=== PATIENT | male | born 1945 | race Hispanic/Latino ===

== ENCOUNTER 2017-10-21 19:15 | Inpatient (IN) | payer MEDICARE ==
[~2017-10-21 19:15] MED LIST: ISOVUE-370 76%-LOCM 1 ML ONE
[2017-10-21 20:17] LABS: #Eosinphils 0.1 thou/uL (0.0-0.7); #Lymphocytes 1.1 thou/uL (1.20-3.40); #Monocytes 0.4 thou/uL (0.11-0.59); #Neutrophils 6.8 thou/uL (1.40-6.50); %Basophils 0.1 % (0.0-1.0); %Eosinophils 0.8 % (0.0-10.0); %Lymphocytes 13.2 % (21.0-51.0); %Monocytes 4.8 % (0.0-10.0); Hematocrit 53.4 % (42.0-52.0); Mean Platelet Volume 6.7 fL (7.4-10.4); Red Blood Cell (RBC) Count 5.42 mill/uL (4.70-6.10); White Blood Cell (WBC) Count 8.4 thou/uL (4.8-10.8)
[2017-10-21 20:37] LABS: Lactic Acid - Sepsis 2.8 mmol/L (0.5-2.2)
[2017-10-21 20:38] LABS: ALT (SGPT) 24 U/L (8-55); AST (SGOT) 22 U/L (5-34); Alkaline Phosphatase 71 U/L (40-150); Anion Gap 14 mmol/L (10-20); BUN (Urea Nitrogen) 17 mg/dL (8.4-25.7); Bilirubin, Total 1.7 mg/dL (0.2-1.2); Calc. Creatinine Clearance 0 mL/min (70-130); Carbon Dioxide 28 mmol/L (23-31); Chloride 92 mmol/L (98-107); Estimated GFR-MDRD Greater than 90; Globulin 3.6 g/dL (2.4-3.5); Protein, Total 7.1 g/dL (5.8-8.1)
[2017-10-21 20:51] LABS: CK (CPK) 91 U/L (30-200); Lipase Less than 4 U/L (8-78)
[2017-10-21 20:54] LABS: Troponin I 0.028 ng/mL (< 0.028)
[2017-10-21 20:56] LABS: Prothrombin Time 14.2 SEC (12.0-14.7)
--- NOTE | 2017-10-21 21:36 | RAD ---
LEFT LOWER LEG TWO VIEWS 10/21/17 HISTORY: Fall. Left leg injury. FINDINGS: The tibia and fibula are intact. There are degenerative changes of the knee and ankle. Calcifications apparent within the arterial structures. IMPRESSION: No acute osseous abnormalities are demonstrated. POS: [facility]
[2017-10-21 21:38] LABS: Bilirubin Small (Negative); Blood, Urine Negative (Negative); Glucose, Urine (Dipstick) 250 mg/dL (Negative); Ketone, Urine 15 mg/dL (Negative); Nitrite Positive (Negative); Protein, Urine (Dipstick) Trace mg/dL (Neg-Trace)
--- NOTE | 2017-10-21 21:38 | RAD ---
LEFT KNEE FOUR VIEWS: 10/21/17 HISTORY: Fall. Left knee injury. FINDINGS: There is complete loss of joint space at the medial compartment with tricompartmental osteophytosis. Osseous structures are demineralized. Fluid distends the suprapatellar bursa on the lateral view. No acute fracture or dislocation or dislocation are apparent. IMPRESSION: 1. Severe osteoarthritic changes left knee with joint effusion. 2. Atherosclerosis. POS: [facility]
[2017-10-21 21:39] LABS: Bacteria/HPF None Seen HPF (None Seen); Squamous Epithelial 0-3 HPF (0-3)
[2017-10-21 21:40] LABS: Hyaline Casts/LPF 0-3 HYALINE CAST LPF (0-3 Hyaline); RBC/HPF 0-3 HPF (0-3)
--- NOTE | 2017-10-21 21:40 | RAD ---
LEFT FEMUR TWO VIEWS 10/21/17 HISTORY: Fall. Left leg injury. FINDINGS: Degenerative changes of the knee and hip are apparent. Sclerotic lesion overlying the proximal femora l shaft has the appearance of a bone island. No acute fracture, dislocation, or aggressive osseous er osions are apparent. IMPRESSION: No acute osseous abnormalities are demonstrated. POS: [facility]
[2017-10-21 23:25] LABS: Lactate 1.85 mmol/L (0.50-2.20)
--- NOTE | 2017-10-21 23:41 | CT ---
CT HEAD NONCONTRAST 10/21/17 HISTORY: Weakness. Abdominal pain. COMPARISON: 01/20/16. FINDINGS: There is no evidence of acute intracranial hemorrhage or infarct. The ventricles appear normal in siz e, shape and position. Diffuse cortical atrophy and chronic ischemic small vessel disease are again d emonstrated. Visualized paranasal sinuses remain well aerated. IMPRESSION: Chronic type findings are stable. No acute intracranial abnormalities are demonstrated on noncontrast CT head. POS: [facility]
--- NOTE | 2017-10-21 23:45 | CT ---
CT ABDOMEN AND PELVIS WITH IV CONTRAST 10/21/17 HISTORY: Abdominal pain. FINDINGS: There is minimal right pleural fluid and small amount of left pleural fluid with associated atelectas is at each lung base. The liver, spleen, kidneys, right adrenal gland, and pancreas are within normal limits. An indeterminate 1.3 cm nodule arises from the left adrenal gland and is of Hounsfield units indeterminate on the contrast enhanced exam. The urinary bladder is unremarkable. Prominent degenera tive changes involving the lumbar spine. Lack of oral contrast limits evaluation of the bowel. There is no evidence of obstruction. IMPRESSION: 1. Left pleural effusion with associated left basilar atelectasis. 2. No evidence of bowel obstruction. 3. Left adrenal nodule, indeterminate, 1.3 cm. POS: [facility]
[2017-10-22] MEDS ORDERED: cefTRIAXone\\ROCEPHIN 2 GM in Sodium Chloride 0.9% 100 ML IVPB SCH (00:15)
[2017-10-22 00:44] LABS: Troponin I 0.037 ng/mL (< 0.028)
[2017-10-22] MEDS ORDERED: Azithromycin 500 MG in Sodium Chloride 0.9% 250 ML 250 ML IVPB SCH (00:45)
[2017-10-22] MEDS ORDERED: Acetaminophen 325 MG TAB PO PRN (01:51)
[2017-10-22] MEDS ORDERED: Ondansetron ODT 4 MG TAB PO PRN (01:51)
[2017-10-22] MEDS ORDERED: HYDROcodone/Acetaminophen 10/325 mg Tablet PO PRN (01:51)
[2017-10-22 03:27] LABS: #Eosinphils 0.1 thou/uL (0.0-0.7); #Lymphocytes 1.3 thou/uL (1.20-3.40); #Monocytes 0.7 thou/uL (0.11-0.59); #Neutrophils 6.4 thou/uL (1.40-6.50); %Basophils 0.4 % (0.0-1.0); %Eosinophils 1.5 % (0.0-10.0); %Lymphocytes 15.1 % (21.0-51.0); %Monocytes 7.9 % (0.0-10.0); Hematocrit 49.4 % (42.0-52.0); Mean Platelet Volume 6.1 fL (7.4-10.4); Red Blood Cell (RBC) Count 5.05 mill/uL (4.70-6.10); White Blood Cell (WBC) Count 8.6 thou/uL (4.8-10.8)
[2017-10-22 03:50] LABS: Anion Gap 8 mmol/L (10-20); BUN (Urea Nitrogen) 15 mg/dL (8.4-25.7); Calc. Creatinine Clearance 0 mL/min (70-130); Calcium 8.7 mg/dL (7.8-10.44); Carbon Dioxide 34 mmol/L (23-31); Chloride 93 mmol/L (98-107); Estimated GFR-MDRD Greater than 90
[2017-10-22 03:53] LABS: Troponin I 0.038 ng/mL (< 0.028)
[2017-10-22] MEDS: HYDROcodone/Acetaminophen 5/325 mg Tablet PO PRN ×3 (04:02→17:06)
[2017-10-22] MEDS: Sodium Chloride 0.9% 1,000 ML IV SCH ×3 (04:03→22:59)
[2017-10-22 04:06] LABS: Critical Call CKMBM RESULT DECREASING
--- NOTE | 2017-10-22 04:32 | HP ---
PRIMARY CARE PHYSICIAN: None. CHIEF COMPLAINT: Knee pain and abdominal pain. HISTORY OF PRESENT ILLNESS: Mr. Shea is a pleasant 71-year-old male who was brou ght in by his son today for evaluation of ongoing knee pain and weakness. The son gave a very extensive history starting about a year and a half ago. The patient was in [facility], able to drive himself around. At that time he was walking down the steps of his home and apparently got his foot caught up in the B allester on one of the sides and fell. His ankle remained tangled and the patient laid there on the ground for some time. Neighbors called the son who came to get the dad. He was able to get his foot worked out and took him to the emergency department for evaluation where he was found to have no irvin dence of fracture. Since that time, the patient was very hesitant about going downstairs or doing mu ch activity due to fear of falling, but he was able to ambulate around his house and do his normal a ctivities. The patient has had persistent knee pain on the left hand side since that time, and actually several months ago, went to go see an orthopedic doctor and was recommended that he have a knee replacement. During the workup, the patient was required to have a stress test and was unwilling to go into what sounds like a nuclear scanner at the installation service representative associated with [facility]. At that time, he did not have any further workup and had no surgery. The patient had progressive incre asing pain to his knee and 3 days ago somehow managed to slide off the edge of his bed and landed on his knee and hurt it even more. Since that time, he has been mostly bedridden and has had increasing pain. He cannot bear weight on it due to pain though his muscles seem to be strong enough. Today, he was having abdominal pain while sitting on the edge of his wheelchair sitting forward so the son b rought him to the emergency department for evaluation. The patient complains of cough and subjective fevers, though it has never been taken. No drenching sweats. The patient has had urinary incontine nce, he has been unable to get out of bed in the last 24 hours. He has had no nausea and vomiting, n o diarrhea, no GI bleeding. In the emergency department, labs were fairly normal. We were called for observation because of the history of subjective fevers, initially elevated lactate that improved with hydration, and placement options. PAST MEDICAL HISTORY: None. PAST SURGICAL HISTORY: None. HOME MEDICATIONS: None. ALLERGIES: NKDA. FAMILY HISTORY: Negative for clotting or bleeding disorder, no immune dysfunction. SOCIAL HISTORY: Negative for habits x3. The patient does live alone. REVIEW OF SYSTEMS: A 10-point review of systems was performed and negative for all other systems exc ept for that in the HPI. PHYSICAL EXAMINATION: VITAL SIGNS: Temperature 98.5, pulse 61, blood pressure 112/59, respiratory rate 24, but actually 18 -20 by my count, he was satting 94% on room air. GENERAL: He is awake. He is alert. He is oriented x3. He is an obese, chronically ill appearing L atin Martiniquais male who is sitting up in bed. HEENT: Normocephalic and atraumatic. Pupils equal, reactive bilaterally, I feel like he has some pa lpebral edema, but the son says is normal for him. His mouth has no visible lesions or thrush. NECK: Supple, without lymphadenopathy, JVD, or thyromegaly. He has normal carotid upstroke. CHEST: Lungs are clear anteriorly with poor air movement. He has poor air movement posteriorly. I hear some faint crackles in the bases. He has some kyphoscoliosis and does not have very good moveme nt, but does have symmetrical chest excursion. CARDIOVASCULAR: He has a normal S1 and S2. I do not appreciate murmurs. No S3 or S4. No audible r ubs. ABDOMEN: Obese, it is nontender, nondistended. He has no masses, no organomegaly. There is no rebo und, rigidity or guarding. There are normal active bowel sounds present in all 4 quadrants. EXTREMITIES: No cyanosis, no clubbing. There is 1+ edema in the bilateral feet. He does have some superficial varicosities. He has some chronic petechial-like appearance to the subcu tissue present around the ankles and the base of the toes bilaterally. He does have 2+ peripheral pulses in the amish salis pedis and posterior tibial. SKIN: The skin is otherwise, warm, moist and well perfused without any rashes or lesions. NEUROLOGIC: Shows cranial nerves II-XII grossly intact. He has no focal neurologic deficits. His f eet have 5/5 strength in plantar and dorsiflexion, he has 4/5 strength in bilateral legs and lifting his thighs off the bed, I was unable to test cerebellar signs. LABORATORY DATA: CMP shows sodium 129, potassium 5.1, chloride 92, bicarbonate 28, BUN 17, creatinin e 0.59, and glucose of 143. Liver functions are normal, total bilirubin slightly elevated at 1.7. L actic acid initially was 2.8, and after hydration went to 1.9. BNP was mildly elevated at 271.4, CK was normal at 91, but MB was elevated at 9.9. Troponin I was negative at 0.028. A urinalysis showed a 7-10 white blood cells, 0-3 epithelial cells, no bacteria, trace leukocyte zi rase and positive nitrite. CBC showed a white count of 8.4, hemoglobin 17.9, hematocrit of 53.4, and platelet count 157,000, 81% granulocytes. ASSESSMENT AND PLAN: 1. Moderate dehydration: The patient has hemoconcentrated his hemoglobin Creatinine and BUN appear normal, though the BUN is more than 20:1 ratio. The patient has an elevated lactic acid, got fluids in the emergency department and the lactic acid normalized. Urine certainly did look like it might be a little on the dirty side. The patient will be placed in observation, given IV fluids and evalua chip in the morning. 2. Subjective fevers, cough, elevated lactic acid: I do not think the patient has sepsis. I think he may have a community-acquired urinary tract infection present on admission, not associated with an y catheters. Given his changes on CT scan seen on the CT of the abdomen, I certainly think that he c ould have an early community-acquired pneumonia. We will start him on Rocephin and azithromycin whic h will cover both the urine and the lung, will repeat chest x-ray after hydration and reevaluate. Wi ll give oxygen as needed, but currently he has no need. 3. Severe obesity. 4. Acute on chronic left knee pain: The patient reinjured his knee a few days ago. Certainly could have had a ligamental injury at this point. X-rays in the emergency department were negative for fr acture. We would focus on his medical issues first before asking for orthopedic opinion as he has al ready seen orthopedic as an outpatient. 5. The patient was supposed to have a stress test, but was not willing to attempt the machine. May need to get stress testing at some point in the near future as an inpatient or an outpatient. We chelsey l wait for the other medical issues to clear up.
[2017-10-22] MEDS: Famotidine 20 MG TAB PO SCH ×2 (08:23→20:40)
[2017-10-22] MEDS: Enoxaparin Sodium 40 MG/0.4 ML SYRINGE SC SCH (08:23)
--- NOTE | 2017-10-22 08:35 | RAD ---
' PORTABLE CHEST: Date: 10/22/17 HISTORY: Fever and cough. FINDINGS: Comparison made to CT abdomen dated 10/21/17 which contained images through the lung bases. Opacification of left lung base is seen consistent with left effusion and dense left basilar atelecta sis or consolidation. This was confirmed on the recent CT of 10/21/17. The right lung appears clear on this portable projection. IMPRESSION: Continued left basilar opacification. POS: [facility]
[2017-10-22] MEDS ORDERED: FLU VACC TS2017-18 (>65YR) 0.5 ML SYRINGE IM ONE (09:00)
--- NOTE | 2017-10-22 09:46 | PDOC.PN ---
- Subjective Encounter Start Date: 10/22/17 Encounter Start Time: 09:43 Subjective: cough, pain L knee - Objective Resuscitation Status: Resuscitation Status FULL:Full Resuscitation MAR Reviewed: Yes Vital Signs & Weight: Vital Signs (12 hours) Temp Pulse Resp BP Pulse Ox 10/22/17 08:34 97.6 F 84 20 10/22/17 07:50 97.6 F 84 20 112/68 95 10/22/17 04:38 98.7 F 71 22 H 10/22/17 03:35 98.7 F 71 22 H 116/58 L 93 L Weight Weight 283 lb 8 oz I&O: 10/21/17 10/22/17 10/23/17 06:59 06:59 06:59 Intake Total 258 Balance 258 Result Diagrams: 10/22/17 03:19 10/22/17 03:19 Phys Exam - Physical Examination Constitutional: NAD Neck: no JVD dull with rales LL lung Cardiovascular: RRR 3/6 sys murmur Gastrointestinal: soft, non-tender, positive bowel sounds Musculoskeletal: no edema effusion L knee Dx/Plan (1) PNA (pneumonia) Code(s): J18.9 - PNEUMONIA, UNSPECIFIED ORGANISM Status: Acute Qualifiers: Pneumonia type: due to unspecified organism Laterality: left Lung location: lower lobe of lung Qualified Code(s): J18.1 - Lobar pneumonia, unspecified organism (2) Effusion of bursa of left knee Code(s): M25.462 - EFFUSION, LEFT KNEE Status: Acute (3) Heart murmur Code(s): R01.1 - CARDIAC MURMUR, UNSPECIFIED Status: Acute (4) Hyponatremia Code(s): E87.1 - HYPO-OSMOLALITY AND HYPONATREMIA Status: Acute (5) Acute respiratory failure with hypoxemia Code(s): J96.01 - ACUTE RESPIRATORY FAILURE WITH HYPOXIA Status: Acute - Plan cont iv antibx, await C&S results -: evaluate murmur with ECHO -: cont iv fluids -: uric acid level -: cont O2 * .
[2017-10-22 11:13] LABS: Troponin I 0.029 ng/mL (< 0.028)
[2017-10-22] MEDS ORDERED: Aspirin 325 mg Enteric Coated Tablet PO SCH (17:45)
[2017-10-23] MEDS: Sodium Chloride 0.9% 1,000 ML IV SCH ×2 (00:16→09:08)
[2017-10-23] MEDS: Azithromycin 500 MG in Sodium Chloride 0.9% 250 ML 250 ML IVPB SCH (00:17)
[2017-10-23] MEDS: cefTRIAXone\\ROCEPHIN 2 GM in Sodium Chloride 0.9% 100 ML IVPB SCH (00:17)
[2017-10-23] MEDS: Enoxaparin Sodium 40 MG/0.4 ML SYRINGE SC SCH (09:10)
[2017-10-23] MEDS: Famotidine 20 MG TAB PO SCH ×2 (09:10→20:36)
[2017-10-23] MEDS: Aspirin 325 MG TAB PO SCH (09:10)
--- NOTE | 2017-10-23 09:44 | PDOC.PN ---
- Subjective Encounter Start Date: 10/23/17 Encounter Start Time: 09:41 Subjective: lethargic, poorly arousable - Objective MAR Reviewed: Yes Vital Signs & Weight: Vital Signs (12 hours) Temp Pulse Resp BP Pulse Ox 10/23/17 07:55 97.7 F 82 18 95 10/23/17 04:12 97.8 F 90 26 H 109/60 94 L 10/23/17 00:25 98.6 F 85 20 111/63 93 L Weight Weight 296 lb 3.2 oz I&O: 10/22/17 10/23/17 10/24/17 06:59 06:59 06:59 Intake Total 3180 Balance 3180 Result Diagrams: 10/22/17 03:19 10/22/17 03:19 Radiology Reviewed by me: Yes (cxr- white out on Left lung) EKG Reviewed by me: Yes (RSR, IVC defect, LAD) Phys Exam - Physical Examination Neck: no JVD dull Left alison, no BS. poor BS on R Cardiovascular: RRR, no significant murmur Gastrointestinal: soft, non-tender, positive bowel sounds Musculoskeletal: edema present Dx/Plan (1) PNA (pneumonia) Code(s): J18.9 - PNEUMONIA, UNSPECIFIED ORGANISM Status: Acute Qualifiers: Pneumonia type: due to unspecified organism Laterality: left Lung location: lower lobe of lung Qualified Code(s): J18.1 - Lobar pneumonia, unspecified organism (2) Effusion of bursa of left knee Code(s): M25.462 - EFFUSION, LEFT KNEE Status: Acute (3) Heart murmur Code(s): R01.1 - CARDIAC MURMUR, UNSPECIFIED Status: Acute (4) Hyponatremia Code(s): E87.1 - HYPO-OSMOLALITY AND HYPONATREMIA Status: Acute (5) Acute respiratory failure with hypoxemia Code(s): J96.01 - ACUTE RESPIRATORY FAILURE WITH HYPOXIA Status: Acute (6) NSTEMI (non-ST elevated myocardial infarction) Code(s): I21.4 - NON-ST ELEVATION (NSTEMI) MYOCARDIAL INFARCTION Status: Acute (7) Acute respiratory failure with hypoxia and hypercapnia Code(s): J96.01 - ACUTE RESPIRATORY FAILURE WITH HYPOXIA; J96.02 - ACUTE RESPIRATORY FAILURE WITH HYPERCAPNIA Status: Acute (8) Pleural effusion on left Code(s): J90 - PLEURAL EFFUSION, NOT ELSEWHERE CLASSIFIED Status: Acute - Plan plan discussed w/ family, medrano catheter, continue antibiotics, DVT proph w/ lovenox stat ABG, pH 7.1, CO2 110 -: rpt troponin, cont ASA -: moved to ICU, started BIPAP, nebs -: pulmonology called. -: 45 min critical care time * .
[2017-10-23 10:36] LABS: Troponin I 0.025 ng/mL (< 0.028)
[2017-10-23 11:11] LABS: Oxyhemoglobin 85.9 % (94.0-97.0); Sodium 136 mmol/L (135-148)
[2017-10-23 11:15] LABS: Modified Allen's Test POSITIVE; Vent NO
[2017-10-23 11:16] LABS: Mode 2L NC
[2017-10-23 12:30] LABS: #Eosinphils 0.1 thou/uL (0.0-0.7); #Lymphocytes 1.2 thou/uL (1.20-3.40); #Monocytes 0.6 thou/uL (0.11-0.59); #Neutrophils 7.1 thou/uL (1.40-6.50); %Basophils 0.5 % (0.0-1.0); %Eosinophils 1.3 % (0.0-10.0); %Lymphocytes 12.8 % (21.0-51.0); %Monocytes 6.9 % (0.0-10.0); Mean Platelet Volume 6.6 fL (7.4-10.4); Red Blood Cell (RBC) Count 5.01 mill/uL (4.70-6.10)
[2017-10-23 12:34] LABS: ALT (SGPT) 23 U/L (8-55); AST (SGOT) 32 U/L (5-34); Alkaline Phosphatase 70 U/L (40-150); Anion Gap 18 mmol/L (10-20); BUN (Urea Nitrogen) 17 mg/dL (8.4-25.7); Bilirubin, Total 0.7 mg/dL (0.2-1.2); Calc. Creatinine Clearance 208 mL/min (70-130); Calcium 8.6 mg/dL (7.8-10.44); Carbon Dioxide 20 mmol/L (23-31); Chloride 101 mmol/L (98-107); Estimated GFR-MDRD Greater than 90; Globulin 3.9 g/dL (2.4-3.5); Protein, Total 7.4 g/dL (5.8-8.1)
--- NOTE | 2017-10-23 13:50 | RAD ---
RADIOGRAPH CHEST 1 VIEW: Date: 10-23-17 Time: 11:43 A.M. HISTORY: 71-year-old male with respiratory failure. COMPARISON: 10-12-17 1:21 a.m. FINDINGS: There is a new finding of total opacification of the left hemithorax. The trachea remains at midline. No pulmonary edema or airspace density involving the right lung. IMPRESSION: Interval dramatic increase in the volume of the now very large left pleural effusion, causing total o pacification of the left hemithorax, and total atelectasis of the underlying left lung. Code T JN POS: [facility]
[2017-10-23 14:16] LABS: BF Reference Range Comment Note:
--- NOTE | 2017-10-23 14:47 | OP ---
DATE OF SERVICE: 10/23/2017 SERVICE: Pulmonary Medicine. PROCEDURE: Left-sided pleural drainage with catheter insertion under ultrasound guidance. CONSENT: Consent and benefits of this procedure were explained to the patient's son. All questions were answered and alternative options explained. STAFF PHYSICIAN: Dayne George M.D. MEDICATIONS USED: Lidocaine 1% without epinephrine, total quantity 10 mL. PREOPERATIVE DIAGNOSES: 1. Acute hypoxic respiratory failure. 2. Pleural effusion, large. POSTPROCEDURE DIAGNOSES: 1. Acute hypoxic respiratory failure. 2. Pleural effusion, large. DESCRIPTION OF PROCEDURE: A timeout was performed by the procedure team and patient. The patient wa s positively identified using name and date of . The procedure site was marked. Vital sign mon itoring was accomplished by noninvasive hemodynamic monitoring, pulsoximetry, and telemetry. In the seated position, the left posterior hemithorax was examined using ultrasound probe. The diaph ragm and pleural fluid was easily identified. The skin was prepped and draped in usual sterile fashi on and anesthetized with 1% lidocaine without epinephrine. A finder needle was inserted in the pleur al space with return of cloudy naheed pleural fluid. A pleural drainage catheter was then inserted in the same location, total quantity of 1500 mL of pleural fluid was withdrawn by syringe pump techniqu e. A sample was sent for analysis. Evacuation of fluid was terminated because the fluid stopped com ing. At the end of the procedure, estimated pleural pressure, measured by manometry, was -18 cm of p leural fluid. The entire catheter was withdrawn on exhalation and a sterile dressing was applied. T he patient had stable vital throughout the entire procedure. ESTIMATED BLOOD LOSS: 2 mL. COMPLICATIONS: None.
[2017-10-23] MEDS ORDERED: Labetalol HCl 100 MG/20 ML VIAL SLOW IVP PRN (15:15)
[2017-10-23] MEDS ORDERED: Furosemide 20 MG/2 ML VIAL SLOW IVP SCH (15:15)
[2017-10-23] MEDS ORDERED: hydrALAZINE 20 MG/ML VIAL SLOW IVP SCH (15:15)
--- NOTE | 2017-10-23 15:47 | CON ---
DATE OF SERVICE: 10/23/2017 SERVICE: Pulmonary Medicine. REASON FOR CONSULTATION: Respiratory failure. HISTORY OF PRESENT ILLNESS: The patient is a 71-year-old male with past medical history sig nificant for nothing. That being said, he has never really been seen by physicians. He was in his [facility] when he came to the Emergency Department because of increasing weakness and ongo ing knee pain. While the patient was in the emergency department, he started having increasing abdom inal discomfort. Today, he was found to be lethargic. An ABG demonstrated acute hypercapnic respira tory failure and subsequently transitioned to the ICU for initiation of BiPAP. Pulmonary was consult ed for this and for the finding of large pleural effusion on the left. PAST MEDICAL HISTORY: None. PAST SURGICAL HISTORY: None. ALLERGIES: No known drug allergies. MEDICATIONS: List of his inpatient medications were reviewed. Multiple updates were made. FAMILY HISTORY: Noncontributory. SOCIAL HISTORY: Negative for alcohol, tobacco or illicit drugs. He denies any known exposure to asb estos or tuberculosis. REVIEW OF SYSTEMS: Currently, he has some abdominal discomfort and knee discomfort. Outside of that , a 10-point review of systems including general, head, eyes, ears, nose, throat, cardiovascular, res piratory, GI, , musculoskeletal, neurologic and skin is negative except as mentioned in the HPI. PHYSICAL EXAMINATION: VITAL SIGNS: Afebrile, pulse 82, blood pressure 149/89, respirations 36, saturation 97% on 2 liters nasal cannula after titrating up and down on BiPAP. HEENT: Normocephalic, atraumatic. Sclerae are white, conjunctivae pink. Oral and nasal mucosa is m oist without lesions. LUNGS: Decent air entry. There is discontinue air entry on the right with no prolonged expiratory p hase. On the left, he is reduced air entry. There is dullness to percussion. No egophony is presen t. HEART: Normal rate, regular. ABDOMEN: Soft, nontender, nondistended. Bowel sounds are positive. MUSCULOSKELETAL: No cyanosis or clubbing. There is no diffuse pitting, which is roughly 1-2+ throug hout. GENITOURINARY: No Guzman catheter in place. NEUROLOGIC: Grossly nonfocal. He got diffuse encephalopathy. LABORATORY DATA: WBC 9.0, hemoglobin 16.5, platelets 172,000. INR 1.1. PH 7.12, pCO2 110, pO2 63 o n 28% FiO2 at the time. Basic metabolic profile is essentially unremarkable except for a dropping bi carbonate of 20, and an increasing anion gap. Basic metabolic profile is otherwise unremarkable. Li patrizia function studies are normal. Troponin is down trending to 0.025. Previous lactate was elevated, but returned to normal to 1.9 as of the morning of the . Uric acid level was below assay limits . BNP was slightly elevated. Lipase was low. Originally elevated bilirubin returned to normal. Ur inalysis was positive for nitrites and leukocyte esterase, but there are only 7-10 white blood cells in the urine. Blood cultures x2 are unremarkable to date. IMAGIN. Chest x-ray demonstrates opacification of the left hemithorax. It likely represents an effusion, but an infiltrate cannot be entirely excluded. 2. Echocardiogram demonstrates 50% ejection fraction with diastolic dysfunction. There is severe di lation of the left atrium. Severe aortic stenosis is present. 3. Brain CT demonstrates no acute intracranial abnormality. 4. X-ray of the tib/fib demonstrates no acute osseous abnormality. 5. Knee x-ray demonstrates no acute osseous abnormality or subluxation. There is severe osteoarthri tis with joint effusion. 6. Femur x-ray demonstrates no acute abnormality. 7. CT of the abdomen and pelvis demonstrates a left-sided pleural effusion with associated left basi lar atelectasis. No evidence of bowel obstruction. Left adrenal nodules indeterminate measuring 1.3 cm. ASSESSMENT: 1. Acute hypoxic and hypercapnic respiratory failure. 2. Metabolic acidosis. 3. Pleural effusion on the left, large. 4. Metabolic encephalopathy. 5. Knee effusion. 6. Weakness. PLAN: We will initiate him on some steroids for the time being. Lactic acid will be ordered. We wi ll perform thoracentesis and some fluid off for analysis to make certain if there no infected space y ear. That being said, he really does not have tachycardia, white blood cell count or fever profile t o suggest any element other infectious process. IV fluids will be held for the time being as he jose de jesus ins slightly volume overloaded. Pulmonary Critical Care, we will continue to follow and he will cert ainly remain in the ICU. I spent over 30 minutes at bedside, titrating BiPAP, deescalating that. This unbundled from my proce dure. CRITICAL CARE TIME: 30 minutes.
[2017-10-23 16:11] LABS: BF Color Yellow
[2017-10-23 16:13] LABS: Number Cells Counted-Fluids 100
[2017-10-24] MEDS: Azithromycin 500 MG in Sodium Chloride 0.9% 250 ML 250 ML IVPB SCH (01:37)
[2017-10-24] MEDS: cefTRIAXone\\ROCEPHIN 2 GM in Sodium Chloride 0.9% 100 ML IVPB SCH (01:37)
[2017-10-24 04:25] LABS: Anion Gap 9 mmol/L (10-20); BUN (Urea Nitrogen) 13 mg/dL (8.4-25.7); Calc. Creatinine Clearance 223 mL/min (70-130); Calcium 8.8 mg/dL (7.8-10.44); Carbon Dioxide 34 mmol/L (23-31); Chloride 95 mmol/L (98-107); Estimated GFR-MDRD Greater than 90
[2017-10-24] MEDS: Furosemide 20 MG/2 ML VIAL SLOW IVP SCH (05:41)
[2017-10-24] MEDS ORDERED: Furosemide 20 MG/2 ML VIAL SLOW IVP SCH (06:00)
--- NOTE | 2017-10-24 08:39 | RAD ---
PORTABLE CHEST: History: Respiratory distress. Comparison: 10-23-17 FINDINGS: Heart size is enlarged. Since the previous examination there has been a definite reduction in the den sity in the left lung which would suggest that there has been thoracentesis performed. I do not see a ny signs of pneumothorax. IMPRESSION: 1. Significant reduction in the opacification of the left lung. Presumably this was effusion and is r elated to thoracentesis. It is less likely resolution of marked atelectatic change. 2. Cardiomegaly. POS: [facility]
[2017-10-24] MEDS: Aspirin 325 MG TAB PO SCH (08:43)
[2017-10-24] MEDS: Famotidine 20 MG TAB PO SCH ×2 (08:43→20:11)
[2017-10-24] MEDS: Enoxaparin Sodium 40 MG/0.4 ML SYRINGE SC SCH (08:43)
--- NOTE | 2017-10-24 11:24 | PDOC.PN ---
- Subjective Encounter Start Date: 10/24/17 Encounter Start Time: 11:21 Subjective: less sob, more alert - Objective MAR Reviewed: Yes Vital Signs & Weight: Vital Signs (12 hours) Temp Pulse Resp Pulse Ox 10/24/17 10:28 90 19 91 L 10/24/17 07:35 98.8 F 78 17 98 10/24/17 07:25 100 10/24/17 07:22 78 17 100 10/24/17 07:00 98.8 F 10/24/17 04:00 98.7 F 10/24/17 02:54 83 18 93 L 10/24/17 00:00 99 F Weight Weight 296 lb 12.8 oz Most Recent Monitor Data Heart Rate from ECG 89 NIBP 139/73 NIBP BP-Mean 113 Respiration from ECG 18 SpO2 97 I&O: 10/23/17 10/24/17 10/25/17 06:59 06:59 06:59 Intake Total 3180 830 598 Output Total 4710 891 Balance 1958 -0391 -856 Result Diagrams: 10/23/17 12:17 10/24/17 03:17 Phys Exam - Physical Examination Constitutional: NAD Neck: no JVD dull, rales in left lower lung Cardiovascular: RRR, no significant murmur Gastrointestinal: soft, non-tender, positive bowel sounds Musculoskeletal: edema present Dx/Plan (1) PNA (pneumonia) Code(s): J18.9 - PNEUMONIA, UNSPECIFIED ORGANISM Status: Acute Qualifiers: Pneumonia type: due to unspecified organism Laterality: left Lung location: lower lobe of lung Qualified Code(s): J18.1 - Lobar pneumonia, unspecified organism (2) Effusion of bursa of left knee Code(s): M25.462 - EFFUSION, LEFT KNEE Status: Acute (3) Heart murmur Code(s): R01.1 - CARDIAC MURMUR, UNSPECIFIED Status: Acute (4) Hyponatremia Code(s): E87.1 - HYPO-OSMOLALITY AND HYPONATREMIA Status: Acute (5) Acute respiratory failure with hypoxemia Code(s): J96.01 - ACUTE RESPIRATORY FAILURE WITH HYPOXIA Status: Acute (6) NSTEMI (non-ST elevated myocardial infarction) Code(s): I21.4 - NON-ST ELEVATION (NSTEMI) MYOCARDIAL INFARCTION Status: Acute (7) Acute respiratory failure with hypoxia and hypercapnia Code(s): J96.01 - ACUTE RESPIRATORY FAILURE WITH HYPOXIA; J96.02 - ACUTE RESPIRATORY FAILURE WITH HYPERCAPNIA Status: Acute (8) Pleural effusion on left Code(s): J90 - PLEURAL EFFUSION, NOT ELSEWHERE CLASSIFIED Status: Acute - Plan off BIPAP, on O2 NC -: cont iv antibx, nebs -: rpt cxr in am * .
[2017-10-24] MEDS ORDERED: Mineral Oil PER 1 ML PO SCH (14:45)
[2017-10-24] MEDS ORDERED: Milk Of Magnesia 30 ML UDCUP PO SCH (14:45)
--- NOTE | 2017-10-24 15:05 | PRG ---
DATE OF SERVICE: 10/24/2017 SERVICE: Pulmonary Medicine INTERVAL HISTORY: The patient is doing fine from a respiratory standpoint. He denies any shortness of breath or chest discomfort. He feels much improved today. He is constipated. Outside of this, abi page has no specific complaints and there were no overnight events. PHYSICAL EXAMINATION: VITAL SIGNS: Afebrile, pulse 81, blood pressure 147/69, respirations 17, saturation 97% on 2 liters nasal cannula. GENERAL: The patient is awake, alert, in no apparent distress. LUNGS: Decent air entry, with no prolonged expiratory phase. Crackles are much improved. No rhonch i or wheezing appreciated. HEART: Normal rate, regular. ABDOMEN: Soft. Nontender, nondistended. Bowel sounds positive. MUSCULOSKELETAL: No cyanosis or clubbing. No pitting in the bilateral lower extremities. NEUROLOGIC: Grossly nonfocal. LABORATORY DATA: Basic metabolic profile is essentially unremarkable except for a bicarbonate of 34, chloride 95, sodium 134. Lactate is only 1.4. LDH is 194. Upper limits of normal are 220. Urinal ysis is positive for nitrites, but there are very few white blood cells present. The pleural fluid i s consistent with a transudative fluid. Cytology is currently pending. Fluid culture is negative to date. Blood cultures x2 are negative. IMAGING: Chest x-ray demonstrates interval improvement in the left-sided pleural effusion. Cardiome darrius is evident. ASSESSMENT: 1. Acute hypoxic respiratory failure, drastically improved. 2. Pleural effusion, transudate. 3. Metabolic acidosis, resolved. 4. Metabolic encephalopathy, resolved. 5. Knee effusion. 6. Weakness. PLAN: We will continue to diurese the patient to euvolemia. Pulmonary Critical Care will continue t o follow up for the time being, but from my perspective, he is stable for transition to the floor. I will give him some stool motility agents to promote a healthy bowel movement. At this point, I do t hink that he can be transitioned back to telemetry unit.
[2017-10-24] MEDS: Senokot S 8.6-50 MG TAB PO SCH (20:11)
[2017-10-25] MEDS: cefTRIAXone\\ROCEPHIN 2 GM in Sodium Chloride 0.9% 100 ML IVPB SCH (01:14)
[2017-10-25] MEDS: Azithromycin 500 MG in Sodium Chloride 0.9% 250 ML 250 ML IVPB SCH (01:14)
[2017-10-25 05:08] LABS: BUN (Urea Nitrogen) 16 mg/dL (8.4-25.7); Calc. Creatinine Clearance 223 mL/min (70-130); Estimated GFR-MDRD Greater than 90
[2017-10-25] MEDS: Furosemide 20 MG/2 ML VIAL SLOW IVP SCH (05:11)
[2017-10-25 05:16] LABS: Anion Gap 5 mmol/L (10-20); Carbon Dioxide 40 mmol/L (23-31); Chloride 92 mmol/L (98-107)
[2017-10-25] MEDS: Senokot S 8.6-50 MG TAB PO SCH ×2 (08:06→20:54)
[2017-10-25] MEDS: Enoxaparin Sodium 40 MG/0.4 ML SYRINGE SC SCH (08:06)
[2017-10-25] MEDS: Aspirin 325 MG TAB PO SCH (08:06)
[2017-10-25] MEDS: Famotidine 20 MG TAB PO SCH ×2 (08:06→20:54)
--- NOTE | 2017-10-25 10:33 | PDOC.PN ---
- Subjective Encounter Start Date: 10/25/17 Encounter Start Time: 10:31 Subjective: less sob - Objective MAR Reviewed: Yes Vital Signs & Weight: Vital Signs (12 hours) Temp Pulse Resp BP Pulse Ox 10/25/17 09:43 99 10/25/17 08:22 97.4 F L 74 22 H 140/74 92 L 10/25/17 07:14 98 10/25/17 07:12 73 21 H 98 10/25/17 04:00 98.3 F 10/25/17 02:39 75 20 100 10/24/17 23:36 78 20 100 10/24/17 23:00 98.3 F Weight Weight 253 lb 8.505 oz Most Recent Monitor Data Heart Rate from ECG 71 NIBP 126/66 NIBP BP-Mean 81 Respiration from ECG 32 SpO2 94 I&O: 10/24/17 10/25/17 10/26/17 06:59 06:59 06:59 Intake Total 830 2226 Output Total 4774 [id number] 575 [facility] [phone] Result Diagrams: 10/23/17 12:17 10/25/17 03:48 Phys Exam - Physical Examination Constitutional: NAD Neck: no JVD dull L base, basilar rales Cardiovascular: RRR 2/6 sys murmur Gastrointestinal: soft, non-tender, positive bowel sounds Musculoskeletal: edema present Dx/Plan (1) PNA (pneumonia) Code(s): J18.9 - PNEUMONIA, UNSPECIFIED ORGANISM Status: Acute Qualifiers: Pneumonia type: due to unspecified organism Laterality: left Lung location: lower lobe of lung Qualified Code(s): J18.1 - Lobar pneumonia, unspecified organism (2) Effusion of bursa of left knee Code(s): M25.462 - EFFUSION, LEFT KNEE Status: Acute (3) Heart murmur Code(s): R01.1 - CARDIAC MURMUR, UNSPECIFIED Status: Acute (4) Hyponatremia Code(s): E87.1 - HYPO-OSMOLALITY AND HYPONATREMIA Status: Acute (5) Acute respiratory failure with hypoxemia Code(s): J96.01 - ACUTE RESPIRATORY FAILURE WITH HYPOXIA Status: Resolved (6) NSTEMI (non-ST elevated myocardial infarction) Code(s): I21.4 - NON-ST ELEVATION (NSTEMI) MYOCARDIAL INFARCTION Status: Acute (7) Acute respiratory failure with hypoxia and hypercapnia Code(s): J96.01 - ACUTE RESPIRATORY FAILURE WITH HYPOXIA; J96.02 - ACUTE RESPIRATORY FAILURE WITH HYPERCAPNIA Status: Resolved (8) Pleural effusion on left Code(s): J90 - PLEURAL EFFUSION, NOT ELSEWHERE CLASSIFIED Status: Acute - Plan rpt cxr- PA & LAT -: echo- diastolic dysfcn -: cont O2, lasix -: consider cardiology consult for DHF * .
--- NOTE | 2017-10-25 12:37 | PQF ---
DATE: 10-25-17 ATTN: DR. KRYSTINA SANCHEZ Please exercise your independent, professional judgment in responding to the clarification form. Clinical indicators are provided on the bottom of this form for your review Please check appropriate box(s): In addition, please specify: Present on Admission (POA): [ ] Yes [ ] No [ ] Unable to determine [ x] NSTEMI [ ] NSTEMI TYPE 2 ( Due to Demand Ischemia ) [ ] Other diagnosis [ ] Unable to determine CLINICAL INDICATORS - SIGNS / SYMPTOMS / LABS 10-23-17: PN DR. SANCHEZ: ACUTE NSTEMI TROPONIN: 10-21-17: 0.028, 0.037 10-22-17: 0.038, 0.029 10-23-17: 0.025 RISKS: H&P: SEVERE OBESITY, WAS SUPPOSE TO HAVE A STRESS TEST PN DR. SANCHEZ 10-25-17: ACUTE HEART MURMUR, ECHO-DIASTOLIC DYSFUNCTION TREATMENTS: H&P: WAS SUPPOSE TO HAVE A STRESS TEST (ER) ADULT ASPIRIN (RT OXYGEN) O2 2-4 L NC CONTINUOUS CARDIAC MONITORING PN DR. SANCHEZ 10-25-17: CONSIDER CARDIOLOGY CONSULT FOR DHF (This form is maintained as a part of the permanent medical record) 2014 [employer]. All Rights Reserved [email or web address] [email or web address] Office: [phone] [facility]OSPITALS[facility]
--- NOTE | 2017-10-25 13:39 | RAD ---
PA AND LATERAL CHEST: Date: 10/25/17 INDICATION: History of a pleural effusion. COMPARISON: Prior exam dated 10/24/17. FINDINGS: There is persistent cardiomegaly and mild pulmonary vascular congestion. No large pleural effusion is evident. Small residual effusions remain. Significant improved aeration of the left lung. No acute o sseous abnormality is evident. IMPRESSION: Small residual bilateral pleural effusions with cardiomegaly. POS: LOC
[2017-10-25 17:12] LABS: Fungus Smear Status Final report (.)
--- NOTE | 2017-10-25 21:44 | PRG ---
DATE OF SERVICE: 10/25/2017 SERVICE: Pulmonary Medicine. INTERVAL HISTORY: The patient is doing really quite well from a respiratory standpoint. He has much more energy today. He denies any current fevers, chills, nausea, vomiting or diarrhea. He is essen tially returning to his usual state of health based on what his family suggests. PHYSICAL EXAMINATION: VITAL SIGNS: Afebrile, pulse 80, blood pressure 140/75, respirations 18, saturation 95% on room air. GENERAL: Patient is awake, alert, in no apparent distress. LUNGS: Much improved air entry. There is no prolonged expiratory phase or wheezing present. 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 HEART: Normal rate, regular. ABDOMEN: Soft, nontender, nondistended. Bowel sounds positive. MUSCULOSKELETAL: No cyanosis or clubbing. 1+ pitting in the bilateral lower extremities is still pr esent, but this has vastly improved. GENITOURINARY: No Guzman. NEUROLOGIC: Grossly nonfocal. LABORATORY DATA: Sodium 133, chloride 92, bicarbonate 40. Creatinine 0.57. Calcium 9.0. Body flui d is consistent with a transudate. Lymphocyte predominate which is essentially irrelevant because it is transudate. Fungal smear is currently pending. All cultures are negative to date. IMAGING: Chest x-ray demonstrates residual bilateral pleural effusions, which are both fairly small. ASSESSMENT: 1. Acute hypoxic respiratory failure, resolved. 2. Pleural effusion on the left, status post thoracentesis, transudate. 3. Metabolic encephalopathy, resolved. 4. Weakness. PLAN: When the patient returns to his usual state of health, repeat ABG should be considered. If he has significant hypercapnia, an outpatient lung evaluation and sleep apnea evaluation will need to b e entertained. At this point, there is no further inpatient requirements for Pulmonary opinion. As such, we will sign off. Please call with additional questions or concerns.
--- NOTE | 2017-10-25 22:30 | CON ---
DATE OF CONSULTATION: 10/25/2017 REASON FOR CONSULTATION: Congestive heart failure. Mr. Faraz Shea is a patient previously seen and evaluated by Dr. Troncoso in the office and I am seeing him for preoperative evaluation. HISTORY OF PRESENT ILLNESS: The patient's main problem has been increasing difficulty breathing. He has been in the hospital and out of the hospital recently. He was in the hospital, then was release d home and came back and progressively more short of breath and was consulted. He is not having ches t pain or pressure, but the echocardiogram did show a severe aortic stenosis. PAST MEDICAL HISTORY: Knee pain. PAST SURGICAL HISTORY: None. ALLERGIES: None known. CURRENT MEDICATIONS: 1. Antibiotics. 2. Enoxaparin. 3. Furosemide. 4. Methylprednisolone. ALLERGIES: None known. REVIEW OF SYSTEMS: CONSTITUTIONAL: No significant weight gain or loss. VISION: No changes. HEARING: No changes. PULMONARY: No cough or wheezing. Positive for shortness of breath. CARDIAC: No chest pain. Positive for shortness of breath. GASTROINTESTINAL: No nausea, vomiting, diarrhea. SKIN: No rashes. NEUROLOGIC: No unilateral weakness or numbness. PSYCHIATRIC: No unusual depression or anxiety. EXTREMITIES: He does have edema. PHYSICAL EXAMINATION: GENERAL: A pleasant gentleman in no distress. VITAL SIGNS: Blood pressure 140/78, pulse 80 and regular. LUNGS: Lungs are clear anteriorly. Posteriorly there are decreased breath sounds at the bases. CARDIOVASCULAR: Normal S1 and normal S2. There is a soft apical systolic murmur. No diastolic murm ur, no S3. ABDOMEN: Obese, nontender, no hepatosplenomegaly. EXTREMITIES: Warm, dry. No clubbing or cyanosis. There is moderate diffuse edema. The patient did re-present to this hospital on the after being released home with severe respira tory acidosis, pH 7.12, pCO2 was 110. He has improved now. EKG normal sinus rhythm with a bifascicular block and first degree AV block. Echocardiogram done and interpreted by Dr. Sawyer on the revealed severe aortic stenosis with peak gradient over 100 mmHg systolic, mean gradient of 70 mmHg systolic. CONCLUSION: 1. With severe aortic stenosis resulting in congestive heart failure, unable to lay flat at the pres ent time. 2. Bifascicular block. PLAN: 1. Continue diuretic therapy. 2. Dr. Troncoso to see patient tomorrow. 3. Probably will be ready for cardiac catheterization by Sunday, will need valve replacement.
[2017-10-26] MEDS: cefTRIAXone\\ROCEPHIN 2 GM in Sodium Chloride 0.9% 100 ML IVPB SCH (01:10)
[2017-10-26] MEDS: Azithromycin 500 MG in Sodium Chloride 0.9% 250 ML 250 ML IVPB SCH (01:18)
[2017-10-26 06:09] LABS: Anion Gap 7 mmol/L (10-20); BUN (Urea Nitrogen) 19 mg/dL (8.4-25.7); Calc. Creatinine Clearance 184 mL/min (70-130); Calcium 8.8 mg/dL (7.8-10.44); Carbon Dioxide 37 mmol/L (23-31); Chloride 93 mmol/L (98-107); Estimated GFR-MDRD Greater than 90
[2017-10-26] MEDS: Furosemide 20 MG/2 ML VIAL SLOW IVP SCH ×2 (06:19→15:25)
[2017-10-26] MEDS ORDERED: Furosemide 40 MG TAB PO SCH (07:30)
[2017-10-26] MEDS: Famotidine 20 MG TAB PO SCH ×2 (08:49→20:31)
[2017-10-26] MEDS: Aspirin 325 MG TAB PO SCH (08:49)
[2017-10-26] MEDS: Senokot S 8.6-50 MG TAB PO SCH ×3 (08:49→20:32)
[2017-10-26] MEDS: Enoxaparin Sodium 40 MG/0.4 ML SYRINGE SC SCH (08:50)
[2017-10-26] MEDS: predniSONE 20 MG TAB PO SCH (08:53)
--- NOTE | 2017-10-26 10:27 | PDOC.PN ---
- Subjective Encounter Start Date: 10/26/17 Encounter Start Time: 08:30 No specific complaint.. - Objective Vital Signs & Weight: Vital Signs (12 hours) Temp Pulse Resp BP Pulse Ox 10/26/17 07:48 97 10/26/17 07:46 70 16 10/26/17 07:28 97.8 F 72 16 139/83 95 10/26/17 04:00 97.6 F 79 20 174/84 H 95 10/26/17 03:15 95 10/25/17 22:29 95 Weight Weight 264 lb Most Recent Monitor Data Heart Rate from ECG 71 NIBP 126/66 NIBP BP-Mean 81 Respiration from ECG 32 SpO2 94 I&O: 10/25/17 10/26/17 10/27/17 06:59 06:59 06:59 Intake Total 2226 1050 Output Total 2791 2320 Balance -565 1270 Result Diagrams: 10/23/17 12:17 10/26/17 04:54 Phys Exam - Physical Examination HEENT: moist MMs Neck: no JVD Respiratory: clear to auscultation bilateral Cardiovascular: RRR Gastrointestinal: soft Musculoskeletal: no edema (Signs of venous insufficiency..), edema present Dx/Plan (1) Hyponatremia Code(s): E87.1 - HYPO-OSMOLALITY AND HYPONATREMIA Status: Acute Plan: continue current management.. Comment: stable...due tu diastolic chf. (2) NSTEMI (non-ST elevated myocardial infarction) Code(s): I21.4 - NON-ST ELEVATION (NSTEMI) MYOCARDIAL INFARCTION Status: Acute (3) Pleural effusion on left Code(s): J90 - PLEURAL EFFUSION, NOT ELSEWHERE CLASSIFIED Status: Acute Comment: minimal , due to chf. (4) Acute respiratory failure with hypoxia and hypercapnia Code(s): J96.01 - ACUTE RESPIRATORY FAILURE WITH HYPOXIA; J96.02 - ACUTE RESPIRATORY FAILURE WITH HYPERCAPNIA Status: Resolved Comment: Check ABG to assess for co2 retention.. - Plan -: Continue plan of care. -: Home soon. * .
--- NOTE | 2017-10-26 10:33 | PDOC.EVN ---
Event Note - Event Note Event Note: Addendum: Pneumonia, as per pulmonary.
[2017-10-26 17:23] LABS: Oxyhemoglobin 85.8 % (94.0-97.0); Sodium 134 mmol/L (135-148)
[2017-10-26 17:24] LABS: Mode ROOM AIR; Modified Allen's Test POSITIVE
[2017-10-26] MEDS: Sodium Chloride 0.9% 10 ML ONE (20:31)
[2017-10-27] MEDS ORDERED: Sodium Chloride 0.9% 10 ML ONE ×3 (00:33→14:29)
[2017-10-27] MEDS: cefTRIAXone\\ROCEPHIN 2 GM in Sodium Chloride 0.9% 100 ML IVPB SCH (00:38)
[2017-10-27] MEDS: Azithromycin 500 MG in Sodium Chloride 0.9% 250 ML 250 ML IVPB SCH (01:13)
[2017-10-27 05:05] LABS: BUN (Urea Nitrogen) 21 mg/dL (8.4-25.7); Calc. Creatinine Clearance 191 mL/min (70-130); Calcium 8.8 mg/dL (7.8-10.44); Estimated GFR-MDRD Greater than 90
[2017-10-27 05:14] LABS: Anion Gap 9 mmol/L (10-20); Carbon Dioxide 38 mmol/L (23-31); Chloride 93 mmol/L (98-107)
[2017-10-27] MEDS: Furosemide 20 MG/2 ML VIAL SLOW IVP SCH ×2 (05:53→14:50)
[2017-10-27] MEDS: Enoxaparin Sodium 40 MG/0.4 ML SYRINGE SC SCH (08:59)
[2017-10-27] MEDS: predniSONE 20 MG TAB PO SCH (08:59)
[2017-10-27] MEDS: Aspirin 325 MG TAB PO SCH (08:59)
[2017-10-27] MEDS: Senokot S 8.6-50 MG TAB PO SCH ×2 (09:00→21:24)
[2017-10-27] MEDS: Famotidine 20 MG TAB PO SCH ×2 (09:00→21:25)
[2017-10-27] MEDS: Sodium Chloride 0.9% 10 ML ONE (09:01)
[2017-10-27] MEDS ORDERED: Potassium Chloride 40 MEQ in Premix Bag 1 BAG IVPB SCH (09:30)
[2017-10-27] MEDS ORDERED: Potassium Chloride 40 MEQ in Sodium Chloride 0.9% 500 ML IVPB SCH (10:00)
--- NOTE | 2017-10-27 10:15 | PDOC.PN ---
- Subjective Encounter Start Date: 10/27/17 Encounter Start Time: 09:00 No complaint expressed. - Objective Vital Signs & Weight: Vital Signs (12 hours) Temp Pulse Resp BP Pulse Ox 10/27/17 08:00 97.7 F 73 18 121/67 95 10/27/17 07:27 95 10/27/17 07:04 88 L 10/27/17 07:01 75 16 10/27/17 05:46 70 20 116/59 L 92 L 10/27/17 04:15 97.8 F 75 20 129/70 91 L 10/27/17 04:00 97.7 F 76 18 116/67 18 L 10/27/17 02:18 93 L 10/27/17 00:00 97.7 F 70 20 144/67 H 97 10/26/17 23:01 92 L Weight Weight 259 lb 3.2 oz Most Recent Monitor Data Heart Rate from ECG 71 NIBP 126/66 NIBP BP-Mean 81 Respiration from ECG 32 SpO2 94 I&O: 10/26/17 10/27/17 10/28/17 06:59 06:59 06:59 Intake Total 1050 1780 Output Total 2320 2925 Balance -1270 -1145 Result Diagrams: 10/23/17 12:17 10/27/17 04:45 Phys Exam - Physical Examination Constitutional: NAD HEENT: sclera anicteric Neck: no JVD Respiratory: clear to auscultation bilateral Cardiovascular: RRR Gastrointestinal: soft Musculoskeletal: edema present Neurological: moves all 4 limbs (Skin changes of venous insufficiency..) Dx/Plan (1) Hyponatremia Code(s): E87.1 - HYPO-OSMOLALITY AND HYPONATREMIA Status: Acute Comment: resolved.. (2) NSTEMI (non-ST elevated myocardial infarction) Code(s): I21.4 - NON-ST ELEVATION (NSTEMI) MYOCARDIAL INFARCTION Status: Acute Plan: For cardiac cath on Sunday.. (3) Pleural effusion on left Code(s): J90 - PLEURAL EFFUSION, NOT ELSEWHERE CLASSIFIED Status: Acute Comment: minimal , due to chf. (4) Acute respiratory failure with hypoxia and hypercapnia Code(s): J96.01 - ACUTE RESPIRATORY FAILURE WITH HYPOXIA; J96.02 - ACUTE RESPIRATORY FAILURE WITH HYPERCAPNIA Status: Resolved Comment: ABG reviewed , ..hypoxic, hypercapneic. (5) Hypokalemia Code(s): E87.6 - HYPOKALEMIA Status: Acute Plan: Check magnesium.. Comment: supplemented. - Plan * .
[2017-10-28] MEDS: cefTRIAXone\\ROCEPHIN 2 GM in Sodium Chloride 0.9% 100 ML IVPB SCH (01:58)
[2017-10-28] MEDS: Azithromycin 500 MG in Sodium Chloride 0.9% 250 ML 250 ML IVPB SCH (03:07)
[2017-10-28 05:27] LABS: BUN (Urea Nitrogen) 22 mg/dL (8.4-25.7); Calc. Creatinine Clearance 186 mL/min (70-130); Calcium 8.8 mg/dL (7.8-10.44); Estimated GFR-MDRD Greater than 90
[2017-10-28 05:36] LABS: Anion Gap 13 mmol/L (10-20); Carbon Dioxide 34 mmol/L (23-31); Chloride 95 mmol/L (98-107)
[2017-10-28] MEDS: Furosemide 20 MG/2 ML VIAL SLOW IVP SCH ×2 (06:32→15:26)
--- NOTE | 2017-10-28 08:43 | PDOC.PN ---
- Subjective Encounter Start Date: 10/28/17 Encounter Start Time: 08:15 -: No new complaint.. - Objective Vital Signs & Weight: Vital Signs (12 hours) Temp Pulse Resp BP BP Pulse Ox 10/28/17 07:46 95 10/28/17 07:44 71 16 10/28/17 06:31 98 10/28/17 06:24 88 20 118/62 87 L 10/28/17 04:00 97.6 F 84 20 179/84 H 90 L 10/28/17 03:22 92 L 10/28/17 03:07 92 L 10/28/17 02:28 77 16 10/27/17 22:22 76 18 93 L 10/27/17 21:21 98.3 F 79 20 147/80 H 97 10/27/17 21:16 98.3 F 79 20 97 Weight Weight 261 lb Most Recent Monitor Data Heart Rate from ECG 71 NIBP 126/66 NIBP BP-Mean 81 Respiration from ECG 32 SpO2 94 I&O: 10/27/17 10/28/17 10/29/17 06:59 06:59 06:59 Intake Total 1780 1982 Output Total 2925 2100 Balance -1145 -118 Result Diagrams: 10/23/17 12:17 10/28/17 04:48 Phys Exam - Physical Examination HEENT: sclera anicteric Neck: no JVD Respiratory: clear to auscultation bilateral Cardiovascular: RRR Gastrointestinal: soft Musculoskeletal: edema present Neurological: moves all 4 limbs Psychiatric: A&O x 3 Dx/Plan (1) Hyponatremia Code(s): E87.1 - HYPO-OSMOLALITY AND HYPONATREMIA Status: Acute Comment: resolved.. (2) NSTEMI (non-ST elevated myocardial infarction) Code(s): I21.4 - NON-ST ELEVATION (NSTEMI) MYOCARDIAL INFARCTION Status: Acute (3) Pleural effusion on left Code(s): J90 - PLEURAL EFFUSION, NOT ELSEWHERE CLASSIFIED Status: Acute Comment: minimal , due to chf. (4) Acute respiratory failure with hypoxia and hypercapnia Code(s): J96.01 - ACUTE RESPIRATORY FAILURE WITH HYPOXIA; J96.02 - ACUTE RESPIRATORY FAILURE WITH HYPERCAPNIA Status: Resolved Comment: ABG reviewed , ..hypoxic, hypercapneic. (5) Hypokalemia Code(s): E87.6 - HYPOKALEMIA Status: Acute Comment: Resolved. - Plan -: Continue current therapy. -: Hypoxic on R/A. -: For cardiac cath in AM to assess valvular dysfunctin, coronary arteries. * .
[2017-10-28] MEDS ORDERED: Communication Order-Pharmacy FS SCH (10:15)
[2017-10-28] MEDS: Famotidine 20 MG TAB PO SCH ×2 (10:23→21:22)
[2017-10-28] MEDS: Aspirin 325 MG TAB PO SCH (10:23)
[2017-10-28] MEDS: Senokot S 8.6-50 MG TAB PO SCH ×2 (10:24→21:22)
[2017-10-28] MEDS: Enoxaparin Sodium 40 MG/0.4 ML SYRINGE SC SCH (10:24)
[2017-10-29] MEDS: cefTRIAXone\\ROCEPHIN 2 GM in Sodium Chloride 0.9% 100 ML IVPB SCH (01:08)
[2017-10-29] MEDS: Azithromycin 500 MG in Sodium Chloride 0.9% 250 ML 250 ML IVPB SCH (01:40)
[2017-10-29] MEDS: Famotidine 20 MG TAB PO SCH ×2 (05:10→22:43)
[2017-10-29] MEDS: Furosemide 20 MG/2 ML VIAL SLOW IVP SCH ×2 (05:10→14:34)
[2017-10-29] MEDS: Aspirin 325 MG TAB PO SCH (05:11)
[2017-10-29 05:39] LABS: BUN (Urea Nitrogen) 22 mg/dL (8.4-25.7); Calc. Creatinine Clearance 170 mL/min (70-130); Calcium 8.9 mg/dL (7.8-10.44); Estimated GFR-MDRD Greater than 90
[2017-10-29 05:52] LABS: Anion Gap 11 mmol/L (10-20); Carbon Dioxide 35 mmol/L (23-31); Chloride 94 mmol/L (98-107)
[2017-10-29] MEDS ORDERED: Heparin 1000 UNIT/NS 500ML(OR) 1,000 ML ONE (06:53)
[2017-10-29] MEDS ORDERED: Nitroglycerin 0.4 MG TAB (25 Tab Bottle) SL PRN (07:51)
[2017-10-29] MEDS ORDERED: Acetaminophen/Codeine 30-300mg Tablet PO PRN ×2 (07:51)
[2017-10-29] MEDS ORDERED: traMADol HCl 50 MG TAB PO PRN (07:51)
[2017-10-29] MEDS ORDERED: Sodium Chloride 0.9% 200 ML IV SCH (08:00)
[2017-10-29] MEDS: Senokot S 8.6-50 MG TAB PO SCH ×2 (11:55→22:26)
[2017-10-29] MEDS ORDERED: Iopamidol 370 76% 100 ML VIAL ONE (14:23)
[2017-10-29] MEDS ORDERED: Communication Order-Pharmacy FS SCH (15:15)
[2017-10-29 16:46] LABS: Hemoglobin A1c 6.6 % (4.0-6.0)
--- NOTE | 2017-10-29 17:12 | PDOC.PN ---
- Subjective Encounter Start Date: 10/29/17 Encounter Start Time: 13:00 Patient seen and examined. No new complaints. No overnight events. No CP/SOB - Objective MAR Reviewed: Yes Vital Signs & Weight: Vital Signs (12 hours) Temp Pulse Resp BP BP BP Pulse Ox 10/29/17 16:25 98 F 74 18 115/53 L 100 10/29/17 15:36 78 16 94 L 10/29/17 12:47 71 18 103/58 L 10/29/17 12:22 97.7 F 73 18 95 10/29/17 12:18 73 10/29/17 12:10 97.7 F 73 18 120/57 L 95 Weight Weight 254 lb 4.8 oz Most Recent Monitor Data Heart Rate from ECG 71 NIBP 126/66 NIBP BP-Mean 81 Respiration from ECG 32 SpO2 94 I&O: 10/28/17 10/29/17 10/30/17 06:59 06:59 06:59 Intake Total 1982 1332 Output Total 2100 1625 Balance -118 -293 Result Diagrams: 10/23/17 12:17 10/29/17 04:58 EKG Reviewed by me: Yes (Tle SR) Phys Exam - Physical Examination Constitutional: NAD Respiratory: no wheezing, no rhonchi Cardiovascular: RRR, no rub 3/6 SHARONDA A area Gastrointestinal: soft, non-tender, positive bowel sounds Musculoskeletal: edema present Chronic Venous stasis Neurological: moves all 4 limbs Dx/Plan - Plan DVT proph w/SCDs IMPRESSION: 1. Severe Aortic stenosis 2. Elevated troponins - Cath 10/29 - normal coronaries (NSTEMI ruled out) 3. Hypokalemia 4. Obesity BMI 35.5 5. Acute hypoxic/hypercapnic resp failure/Transudative pleural effusion/ Metabolic encephalopathy/ hyponatremia/Lactic acidosis/dehydration - resolved. PLAN: * s/p Cath 10/29 * Cardiology following * CT consulted - Plan for AVR * Replace Potassium * AM labs Review of Systems - Review of Systems Constitutional: negative: Fever, Chills, Sweats, Weakness, Malaise, Other Cardiovascular: negative: Chest Pain, Palpitations, Orthopnea, Paroxysmal Noc. Dyspnea, Edema, Light Headedness Gastrointestinal: negative: Nausea, Vomiting, Abdominal Pain, Diarrhea, Constipation, Melena, Hematochezia - Medications/Allergies Allergies/Adverse Reactions: Allergies Allergy/AdvReac Type Severity Reaction Status Date / Time No Known Allergies Allergy Verified 10/22/17 05:10 Medications: Current Medications Acetaminophen (Tylenol) 650 mg PO Q4H PRN PRN Reason: Headache/Fever or Pain Stop: 10/30/17 08:59 Acetaminophen/Codeine Phosphate (Tylenol #3) 1 tab PO Q4H PRN PRN Reason: Mild Pain (1-3) Stop: 10/30/17 08:59 Acetaminophen/Codeine Phosphate (Tylenol #3) 2 tab PO Q4H PRN PRN Reason: Moderate Pain (4-6) Stop: 10/30/17 08:59 Hydrocodone Bitart/Acetaminophen (Newcomb 10/325) 1 tab PO Q4H PRN PRN Reason: Severe Pain (7-10) Stop: 10/30/17 08:59 Last Admin: 10/23/17 20:36 Dose: 1 tab Hydrocodone Bitart/Acetaminophen (Newcomb 5/325) 1 tab PO Q4H PRN PRN Reason: Moderate Pain (4-6) Stop: 10/30/17 08:59 Last Admin: 10/22/17 17:06 Dose: 1 tab Albuterol/Ipratropium (Duoneb) 3 ml NEB S2PS-AE ROSALES Stop: 10/30/17 08:59 Last Admin: 10/29/17 15:36 Dose: 3 ml Aspirin (Aspirin) 325 mg PO DAILY ROSALES Stop: 10/30/17 08:59 Last Admin: 10/29/17 05:11 Dose: 325 mg Famotidine (Pepcid) 20 mg PO BID ROSALES Stop: 10/30/17 08:59 Last Admin: 10/29/17 05:10 Dose: 20 mg Furosemide (Lasix) 20 mg SLOW IVP 0600,1400 ROSALES Stop: 10/30/17 08:59 Last Admin: 10/29/17 14:34 Dose: 20 mg Azithromycin 500 mg/ Sodium (Chloride) 250 mls @ 250 mls/hr IVPB Q24HR ROSALES Stop: 10/30/17 08:59 Last Admin: 10/29/17 01:40 Dose: 250 mls Ceftriaxone Sodium 2 gm/ (Sodium Chloride) 100 mls @ 200 mls/hr IVPB Q24HR ROSALES Stop: 10/30/17 08:59 Last Admin: 10/29/17 01:08 Dose: 100 mls Sodium Chloride (Normal Saline 0.9%) 200 mls @ 0 mls/hr IV ONE ROSALES PRN Reason: As Directed Stop: 10/30/17 08:59 Labetalol HCl (Normodyne) 20 mg SLOW IVP Q15MIN PRN PRN Reason: SBP Greater Than 180 Stop: 10/30/17 08:59 Miscellaneous Information (Communication Order-Pharmacy) 1 each FS ONE ROSALES Stop: 10/30/17 12:00 Nitroglycerin (Nitrostat) 0.4 mg SL Q5MIN PRN PRN Reason: Chest Pain Stop: 10/30/17 08:59 Ondansetron HCl (Zofran Odt) 4 mg PO Q6H PRN PRN Reason: Nausea/Vomiting Stop: 10/30/17 08:59 Senna/Docusate Sodium (Senokot S) 1 tab PO BID ROSALES Stop: 10/30/17 08:59 Last Admin: 10/29/17 11:55 Dose: Not Given Sodium Chloride (Flush - Normal Saline) 10 ml IVF Q12HR ROSALES Stop: 10/30/17 08:59 Last Admin: 10/29/17 14:34 Dose: 10 ml Sodium Chloride (Flush - Normal Saline) 10 ml IVF PRN PRN PRN Reason: Saline Flush Stop: 10/30/17 08:59 Last Admin: 10/29/17 05:10 Dose: 10 ml Tramadol HCl (Ultram) 50 mg PO Q6H PRN PRN Reason: Moderate Pain (4-6) Stop: 10/30/17 08:59
--- NOTE | 2017-10-29 21:07 | CON ---
DATE OF CONSULTATION: 10/29/2017 HISTORY OF PRESENT ILLNESS: This is a 71-year-old gentleman admitted with congestive heart failure w ith dyspnea on exertion for some time. He has been using a walker and wheelchair at home for the pas t year due to problems with his knee and was actually going to have surgery and [facility], however, did not return for a stress test because he did not thin k he could do the stress test. Then, he saw Dr. Miranda for his orthopedic evaluation. He has been no ticing some swelling in his lower extremities and was admitted to the hospital, where he was felt to be in congestive heart failure with a large left pleural effusion, for which he underwent thoracentes is. He had slight elevation of his troponin, but very minimal; BNP was mildly elevated 271. Cardiac echo suggested critical aortic valve stenosis with a peak gradient of greater than 100 and velocitie s greater than 500. He is estimated at 0.56 square cm. Cardiac catheterization today showed no iza nary artery disease. PAST MEDICAL HISTORY: Essentially negative, as he has not really had any medical care apart from his knee problems. MEDICATIONS: Prior to admission were none. He is currently on aspirin and has been placed on azithr omycin and Rocephin for possible pneumonia, although it does not appear that this was actually the ca se. He has been on Lasix 20 mg twice a day. ALLERGIES: He has no known allergies. PHYSICAL EXAMINATION: VITAL SIGNS: 5 feet 11, 254 pounds stated and he looks heavier than that. NECK: No carotid bruits. LUNGS: Diminished breath sounds, left lower hemithorax compared to the right. CARDIAC: Soft systolic murmur, right upper sternal border with no radiation. ABDOMEN: Quite obese. EXTREMITIES: He has no peripheral edema at this time, but does have some skin changes suggestive of chronic venous insufficiency. He has palpable dorsalis pedis pulses bilaterally. PLAN: Plan at this time is for aortic valve replacement, possible left atrial appendage ligation. T he patient has had no known atrial fibrillation, but does have severely dilated left atrium and for t his reason, I think it is likely that he will have some postoperative atrial fibrillation. His EKG a t baseline shows bifascicular block. His other laboratory values are not remarkable at this time. I nformed consent has been obtained through patient and son.
[2017-10-30] MEDS: cefTRIAXone\\ROCEPHIN 2 GM in Sodium Chloride 0.9% 100 ML IVPB SCH (01:16)
[2017-10-30] MEDS: Azithromycin 500 MG in Sodium Chloride 0.9% 250 ML 250 ML IVPB SCH (02:08)
[2017-10-30 05:08] LABS: #Eosinphils 0.5 thou/uL (0.0-0.7); #Lymphocytes 1.8 thou/uL (1.20-3.40); #Monocytes 0.7 thou/uL (0.11-0.59); #Neutrophils 6.3 thou/uL (1.40-6.50); %Basophils 0.3 % (0.0-1.0); %Lymphocytes 19.1 % (21.0-51.0); %Monocytes 7.4 % (0.0-10.0); Hematocrit 48.6 % (42.0-52.0); Mean Platelet Volume 6.3 fL (7.4-10.4); White Blood Cell (WBC) Count 9.2 thou/uL (4.8-10.8)
[2017-10-30 05:37] LABS: BUN (Urea Nitrogen) 20 mg/dL (8.4-25.7); BUN/Creatinine Ratio 32.26; Calc. Creatinine Clearance 176 mL/min (70-130); Estimated GFR-MDRD Greater than 90; Magnesium 2.3 mg/dL (1.6-2.6); Phosphorus 3.2 mg/dL (2.3-4.7)
[2017-10-30 05:47] LABS: Anion Gap 13 mmol/L (10-20); Carbon Dioxide 34 mmol/L (23-31); Chloride 95 mmol/L (98-107)
[2017-10-30] MEDS: Furosemide 20 MG/2 ML VIAL SLOW IVP SCH ×2 (05:59→07:42)
[2017-10-30] MEDS ORDERED: Enoxaparin Sodium 40 MG/0.4 ML SYRINGE SC SCH ×2 (09:30)
--- NOTE | 2017-10-30 23:28 | PDOC.PN ---
- Subjective Encounter Start Date: 10/30/17 Encounter Start Time: 10:00 Patient seen and examined. No new complaints. No overnight events - Objective MAR Reviewed: Yes Vital Signs & Weight: Vital Signs (12 hours) Temp Pulse Resp BP Pulse Ox 10/30/17 20:30 97.9 F 67 16 108/53 L 92 L 10/30/17 16:00 97.5 F L 70 16 115/59 L 90 L 10/30/17 12:00 98.6 F 72 17 102/51 L 92 L Weight Weight 254 lb 4.8 oz Most Recent Monitor Data Heart Rate from ECG 71 NIBP 126/66 NIBP BP-Mean 81 Respiration from ECG 32 SpO2 94 I&O: 10/29/17 10/30/17 10/31/17 06:59 06:59 06:59 Intake Total 5784 190 9726 Output Total 1625 1550 575 Balance -293 -830 625 Result Diagrams: 10/30/17 04:46 10/31/17 04:52 EKG Reviewed by me: Yes (Tele SR) Phys Exam - Physical Examination Constitutional: NAD Respiratory: no wheezing, no rhonchi Cardiovascular: RRR, no rub Gastrointestinal: soft, non-tender, positive bowel sounds Musculoskeletal: no edema Neurological: moves all 4 limbs Dx/Plan - Plan cont current plan of care, plan discussed w/ family, DVT proph w/SCDs IMPRESSION: 1. Severe Aortic stenosis 2. Elevated troponins - Cath 10/29 - normal coronaries (NSTEMI ruled out) 3. Hypokalemia - better 4. Obesity BMI 35.5 5. Acute hypoxic/hypercapnic resp failure/Transudative pleural effusion/ Metabolic encephalopathy/ hyponatremia/Lactic acidosis/dehydration - resolved. PLAN: * Await surgery - Waiting for PRBC (has antibodies) * Cardiology following * CT following * AM labs * cont current meds as below Review of Systems - Review of Systems Respiratory: negative: Cough, Dry, Shortness of Breath, Hemoptysis, SOB with Excertion, Pleuritic Pain, Sputum, Wheezing Cardiovascular: negative: Chest Pain, Palpitations, Orthopnea, Paroxysmal Noc. Dyspnea, Edema, Light Headedness Gastrointestinal: negative: Nausea, Vomiting, Abdominal Pain, Diarrhea, Constipation, Melena, Hematochezia - Medications/Allergies Allergies/Adverse Reactions: Allergies Allergy/AdvReac Type Severity Reaction Status Date / Time No Known Allergies Allergy Verified 10/22/17 05:10 Medications: Current Medications Enoxaparin Sodium (Lovenox) 40 mg SC 0900 [facility]
[2017-10-31 06:25] LABS: Anion Gap 7 mmol/L (10-20); BUN (Urea Nitrogen) 18 mg/dL (8.4-25.7); Calc. Creatinine Clearance 202 mL/min (70-130); Calcium 8.7 mg/dL (7.8-10.44); Carbon Dioxide 37 mmol/L (23-31); Chloride 94 mmol/L (98-107); Estimated GFR-MDRD Greater than 90
[2017-10-31] MEDS: Enoxaparin Sodium 40 MG/0.4 ML SYRINGE SC SCH (09:23)
[2017-10-31] MEDS ORDERED: Furosemide 20 MG/2 ML VIAL SLOW IVP SCH (17:30)
[2017-10-31] MEDS ORDERED: Communication Order-Pharmacy FS ONE (17:32)
[2017-10-31] MEDS ORDERED: Acetaminophen 325 MG TAB PO PRN (17:34)
[2017-10-31] MEDS ORDERED: Ondansetron HCl/PF 4 MG/2 ML Vial IVP PRN (17:34)
[2017-10-31] MEDS ORDERED: Ondansetron ODT 4 MG TAB PO PRN (17:34)
[2017-10-31] MEDS ORDERED: Senokot 8.6 MG TAB PO PRN (17:34)
[2017-10-31] MEDS ORDERED: Nitroglycerin 0.4 MG TAB (25 Tab Bottle) PO PRN (17:34)
[2017-10-31] MEDS ORDERED: Furosemide 40 MG/4 ML VIAL SLOW IVP SCH (17:45)
--- NOTE | 2017-10-31 19:16 | PDOC.PN ---
- Subjective Encounter Start Date: 10/31/17 Encounter Start Time: 11:00 Patient seen and examined. No new complaints. No overnight events - Objective MAR Reviewed: Yes Vital Signs & Weight: Vital Signs (12 hours) Temp Pulse Pulse Pulse Resp BP BP 10/31/17 15:59 98.7 F 84 20 10/31/17 12:00 97.9 F 69 20 10/31/17 10:59 71 66 110/54 L 105/54 L 10/31/17 08:00 98.7 F 84 20 10/31/17 07:45 98.0 F 66 18 BP BP Pulse Ox Pulse Ox Pulse Ox 10/31/17 15:59 103/59 L 95 10/31/17 12:00 105/54 L 95 10/31/17 10:59 96 96 10/31/17 08:00 97 10/31/17 07:45 93/54 L 97 Weight Weight 254 lb 4.8 oz Most Recent Monitor Data Heart Rate from ECG 71 NIBP 126/66 NIBP BP-Mean 81 Respiration from ECG 32 SpO2 94 I&O: 10/30/17 10/31/17 11/01/17 06:59 06:59 06:59 Intake Total 720 1440 360 Output Total 1550 875 Balance -830 565 360 Result Diagrams: 10/30/17 04:46 10/31/17 04:52 EKG Reviewed by me: Yes (Tele SR) Phys Exam - Physical Examination Constitutional: NAD Respiratory: no wheezing, no rhonchi Cardiovascular: RRR, no rub Gastrointestinal: soft, non-tender, positive bowel sounds Musculoskeletal: no edema Neurological: non-focal, moves all 4 limbs Psychiatric: A&O x 3 Dx/Plan - Plan DVT proph w/lovenox, DVT proph w/SCDs IMPRESSION: 1. Severe Aortic stenosis 2. Elevated troponins - Cath 10/29 - normal coronaries (NSTEMI ruled out) 3. Hyponatremia - mild - prob due to diuretics 4. Obesity BMI 35.5 6. Acute hypoxic/hypercapnic resp failure/Hypokalemia/Transudative pleural effusion/Metabolic encephalopathy/ hyponatremia/Lactic acidosis/dehydration - resolved. PLAN: * AVR on sunday * Cardiology/CT following * cont current meds as below * Cont diuretics * AM labs Review of Systems - Review of Systems Constitutional: negative: Fever, Chills, Sweats, Weakness, Malaise Respiratory: SOB with Excertion. negative: Cough, Dry, Shortness of Breath, Hemoptysis, Pleuritic Pain, Sputum, Wheezing Cardiovascular: negative: Chest Pain, Palpitations, Orthopnea, Paroxysmal Noc. Dyspnea, Edema, Light Headedness, Other Neurological: negative: Weakness, Numbness, Incoordination, Change in Speech, Confusion, Seizures - Medications/Allergies Allergies/Adverse Reactions: Allergies Allergy/AdvReac Type Severity Reaction Status Date / Time No Known Allergies Allergy Verified 10/22/17 05:10 Medications: Current Medications Acetaminophen (Tylenol) 650 mg PO Q4H PRN PRN Reason: Headache/Fever or Pain Aspirin (Aspirin) 325 mg PO DAILY [facility] Docusate Sodium (Colace) 100 mg PO BID [facility] Enoxaparin Sodium (Lovenox) 40 mg SC 0900 [facility] Last Admin: 10/31/17 09:23 Dose: 40 mg Famotidine (Pepcid) 20 mg PO BID [facility] Furosemide (Lasix) 40 mg PO 0900,1400 [facility] Miscellaneous Information (Communication Order-Pharmacy) 1 each FS ONE ONE Stop: 10/31/17 17:33 Nitroglycerin (Nitrostat) 0.4 mg PO Q5MIN PRN PRN Reason: Chest Pain Ondansetron HCl (Zofran Odt) 4 mg PO Q6H PRN PRN Reason: Nausea/Vomiting Ondansetron HCl (Zofran) 4 mg IVP Q6H PRN PRN Reason: Nausea/Vomiting Senna (Senokot) 2 tab PO HSPRN PRN PRN Reason: Constipation Sodium Chloride (Flush - Normal Saline) 10 ml IVF PRN PRN PRN Reason: Saline Flush
[2017-10-31] MEDS: Famotidine 20 MG TAB PO SCH (21:38)
[2017-10-31] MEDS: Docusate 100 MG CAP PO SCH (21:38)
[2017-11-01] MEDS ORDERED: Furosemide 20 MG/2 ML VIAL SLOW IVP SCH (06:00)
[2017-11-01 06:05] LABS: #Basophils 0.1 thou/uL (0.0-0.2); #Eosinphils 0.4 thou/uL (0.0-0.7); #Lymphocytes 1.5 thou/uL (1.20-3.40); #Monocytes 0.9 thou/uL (0.11-0.59); #Neutrophils 5.5 thou/uL (1.40-6.50); %Basophils 0.8 % (0.0-1.0); %Eosinophils 5.1 % (0.0-10.0); %Lymphocytes 18.3 % (21.0-51.0); %Monocytes 10.2 % (0.0-10.0); Hematocrit 44.6 % (42.0-52.0); Mean Platelet Volume 6.9 fL (7.4-10.4); Red Blood Cell (RBC) Count 4.48 mill/uL (4.70-6.10); White Blood Cell (WBC) Count 8.4 thou/uL (4.8-10.8)
[2017-11-01 06:19] LABS: BUN (Urea Nitrogen) 17 mg/dL (8.4-25.7); Calc. Creatinine Clearance 205 mL/min (70-130); Calcium 8.6 mg/dL (7.8-10.44); Estimated GFR-MDRD Greater than 90
[2017-11-01 06:28] LABS: Anion Gap 9 mmol/L (10-20); Carbon Dioxide 37 mmol/L (23-31); Chloride 95 mmol/L (98-107)
[2017-11-01] MEDS ORDERED: Aspirin 325 MG TAB PO SCH (09:00)
[2017-11-01] MEDS ORDERED: Potassium Chloride 20 MEQ TAB PO SCH ×2 (09:15→17:00)
[2017-11-01] MEDS: Enoxaparin Sodium 40 MG/0.4 ML SYRINGE SC SCH (10:01)
[2017-11-01] MEDS: Famotidine 20 MG TAB PO SCH ×2 (10:01→21:03)
[2017-11-01] MEDS: Docusate 100 MG CAP PO SCH ×2 (10:01→21:03)
[2017-11-01] MEDS: Furosemide 40 MG TAB PO SCH ×2 (10:02→14:00)
--- NOTE | 2017-11-01 16:57 | PDOC.PN ---
- Subjective Encounter Start Date: 11/01/17 Encounter Start Time: 13:00 Patient seen and examined. No new complaints. No overnight events. No CP/SOB. - Objective MAR Reviewed: Yes Vital Signs & Weight: Vital Signs (12 hours) Temp Pulse Pulse Pulse Resp BP BP 11/01/17 15:03 97.6 F 72 18 11/01/17 14:55 72 70 119/58 L 119/60 11/01/17 12:00 97.9 F 68 18 11/01/17 08:00 97.0 F L 65 18 BP BP Pulse Ox Pulse Ox Pulse Ox 11/01/17 15:03 119/58 L 97 11/01/17 14:55 96 95 11/01/17 12:00 100/53 L 96 11/01/17 08:00 94/53 L 95 Weight Admit Weight 283 lb 8 oz Weight 272 lb 4.8 oz Most Recent Monitor Data Heart Rate from ECG 71 NIBP 126/66 NIBP BP-Mean 81 Respiration from ECG 32 SpO2 94 I&O: 10/31/17 11/01/17 11/02/17 06:59 06:59 06:59 Intake Total 1440 1320 720 Output Total 875 950 Balance 565 370 720 Result Diagrams: 11/01/17 04:49 11/01/17 04:49 EKG Reviewed by me: Yes (Tele SR) Phys Exam - Physical Examination Constitutional: NAD Respiratory: no wheezing, no rhonchi Scat rales at bases Cardiovascular: RRR, no rub Gastrointestinal: soft, positive bowel sounds Musculoskeletal: no edema Neurological: moves all 4 limbs Dx/Plan - Plan DVT proph w/SCDs IMPRESSION: 1. Severe Aortic stenosis 2. Elevated troponins - Cath 10/29 - normal coronaries (NSTEMI ruled out) 3. Hypokalemia - mild - prob due to diuretics 4. Obesity BMI 35.5 6. Acute hypoxic/hypercapnic resp failure/Hyponatremia/Transudative pleural effusion/Metabolic encephalopathy/ hyponatremia/Lactic acidosis/dehydration - resolved. PLAN: * AVR in AM * Cardiology/CT following * cont current meds as below * Replace Potassium Review of Systems - Review of Systems Cardiovascular: negative: Chest Pain, Palpitations, Orthopnea, Paroxysmal Noc. Dyspnea, Edema, Light Headedness Gastrointestinal: negative: Nausea, Vomiting, Abdominal Pain, Diarrhea, Constipation, Melena, Hematochezia - Medications/Allergies Allergies/Adverse Reactions: Allergies Allergy/AdvReac Type Severity Reaction Status Date / Time No Known Allergies Allergy Verified 10/22/17 05:10 Medications: Current Medications Acetaminophen (Tylenol) 650 mg PO Q4H PRN PRN Reason: Headache/Fever or Pain Stop: 11/02/17 08:55 Aspirin (Aspirin) 325 mg PO DAILY [facility] Stop: 11/02/17 08:55 Last Admin: 11/01/17 10:02 Dose: 325 mg Docusate Sodium (Colace) 100 mg PO BID [facility] Stop: 11/02/17 08:55 Last Admin: 11/01/17 10:01 Dose: 100 mg Enoxaparin Sodium (Lovenox) 40 mg SC 0900 [facility] Stop: 11/02/17 08:55 Last Admin: 11/01/17 10:01 Dose: 40 mg Famotidine (Pepcid) 20 mg PO BID [facility] Stop: 11/02/17 08:55 Last Admin: 11/01/17 10:01 Dose: 20 mg Furosemide (Lasix) 40 mg PO 0900,1400 [facility] Stop: 11/02/17 08:55 Last Admin: 11/01/17 10:02 Dose: 40 mg Nitroglycerin (Nitrostat) 0.4 mg PO Q5MIN PRN PRN Reason: Chest Pain Stop: 11/02/17 08:55 Ondansetron HCl (Zofran Odt) 4 mg PO Q6H PRN PRN Reason: Nausea/Vomiting Stop: 11/02/17 08:55 Ondansetron HCl (Zofran) 4 mg IVP Q6H PRN PRN Reason: Nausea/Vomiting Stop: 11/02/17 08:55 Potassium Chloride (K-Dur) 20 meq PO BID[facility] Stop: 11/01/17 17:01 Senna (Senokot) 2 tab PO HSPRN PRN PRN Reason: Constipation Stop: 11/02/17 08:55 Sodium Chloride (Flush - Normal Saline) 10 ml IVF PRN PRN PRN Reason: Saline Flush Stop: 11/02/17 08:55
[2017-11-02] MEDS ORDERED: CEFAZOLIN/Water 2 GM/20 ML SYRINGE SLOW IVP SCH (04:30)
[2017-11-02 06:16] LABS: Anion Gap 9 mmol/L (10-20); BUN (Urea Nitrogen) 19 mg/dL (8.4-25.7); Calc. Creatinine Clearance 201 mL/min (70-130); Calcium 8.6 mg/dL (7.8-10.44); Carbon Dioxide 36 mmol/L (23-31); Chloride 96 mmol/L (98-107); Estimated GFR-MDRD Greater than 90
[2017-11-02] MEDS ORDERED: Midazolam HCl 5 mg/5 ml Vial ONE (06:33)
[2017-11-02] MEDS ORDERED: Dexmedetomidine 200 MCG/2 ML VIAL ONE (06:34)
[2017-11-02] MEDS ORDERED: Vecuronium 10 MG VIAL ONE ×2 (06:34→16:07)
[2017-11-02] MEDS ORDERED: Heparin 10,000 UNITS/1 ML VIAL 30,000 UNITS in Sodium Chloride 0.9% 1,000 ML FS SCH (07:00)
[2017-11-02] MEDS ORDERED: CEFAZOLIN/Water 2 GM/20 ML SYRINGE ONE (08:25)
[2017-11-02 14:24] LABS: PTT 33.8 SEC (22.9-36.1); Prothrombin Time 18.4 SEC (12.0-14.7)
[2017-11-02] MEDS ORDERED: Bisacodyl 10 MG SUPP PR PRN (14:50)
[2017-11-02] MEDS ORDERED: Norepinephrine 8 MG/0.9% NS 250 ML IVPB PRN (14:50)
[2017-11-02] MEDS ORDERED: Post-Op Insulin Drip Protocol IVPB ONE (14:50)
[2017-11-02] MEDS ORDERED: Promethazine HCl 25 MG/ML VIAL IM PRN (14:50)
[2017-11-02] MEDS ORDERED: hydrALAZINE 20 MG/ML VIAL SLOW IVP PRN (14:50)
[2017-11-02] MEDS ORDERED: Bisacodyl 5 MG TAB PO PRN (14:50)
[2017-11-02] MEDS ORDERED: Acetaminophen 325 MG TAB PO PRN (14:50)
[2017-11-02] MEDS ORDERED: Mag-Al 1200 mg/1200 mg/30 ML UDCUP PO PRN (14:50)
[2017-11-02] MEDS ORDERED: Ondansetron HCl/PF 4 MG/2 ML Vial IVP PRN (14:50)
[2017-11-02] MEDS ORDERED: DOPamine 400 MG/D5W 250 ML 250 ML IVPB PRN (14:50)
[2017-11-02] MEDS ORDERED: Guaifenesin DM 100-10/5 ML UDCUP PO PRN (14:50)
[2017-11-02] MEDS ORDERED: Fentanyl 100 MCG/2 ML VIAL SLOW IVP PRN (14:50)
[2017-11-02] MEDS ORDERED: Hetastarch 6% 500 ML 500 ML IVPB PRN (14:50)
[2017-11-02] MEDS ORDERED: Potassium Chloride 20 MEQ/100 ML PREMIX BAG IVPB PRN (14:50)
[2017-11-02] MEDS ORDERED: Insulin Regular 300 UNITS/3 ML VIAL SC PRN (14:57)
[2017-11-02] MEDS ORDERED: Dextrose 5% in Water 1,000 ML IV PRN (14:57)
[2017-11-02] MEDS ORDERED: Dextrose 50% Abboject 50 ML SYRINGE SLOW IVP PRN (14:57)
[2017-11-02] MEDS: Sodium Chloride 0.9% 1,000 ML IV SCH (15:10)
[2017-11-02 15:17] LABS: #Basophils 0.1 thou/uL (0.0-0.2); #Eosinphils 0.2 thou/uL (0.0-0.7); #Lymphocytes 1.4 thou/uL (1.20-3.40); #Monocytes 0.8 thou/uL (0.11-0.59); #Neutrophils 11.6 thou/uL (1.40-6.50); %Basophils 0.6 % (0.0-1.0); %Eosinophils 1.5 % (0.0-10.0); %Lymphocytes 9.8 % (21.0-51.0); %Monocytes 5.7 % (0.0-10.0); Hematocrit 42.2 % (42.0-52.0); Mean Platelet Volume 7.3 fL (7.4-10.4); Red Blood Cell (RBC) Count 4.31 mill/uL (4.70-6.10)
[2017-11-02 15:24] LABS: Prothrombin Time 17.5 SEC (12.0-14.7)
[2017-11-02 15:38] LABS: Anion Gap 13 mmol/L (10-20); BUN (Urea Nitrogen) 19 mg/dL (8.4-25.7); Calc. Creatinine Clearance 215 mL/min (70-130); Carbon Dioxide 28 mmol/L (23-31); Chloride 102 mmol/L (98-107); Estimated GFR-MDRD Greater than 90
[2017-11-02] MEDS: Morphine 4 MG/ML VIAL SLOW IVP PRN ×2 (15:40→17:36)
[2017-11-02 15:50] LABS: Oxyhemoglobin 92.4 % (94.0-97.0); Sodium 140 mmol/L (135-148)
[2017-11-02 15:52] LABS: Mechanical Tidal Volume 600 ml; Mode SIMV; Pressure Support 10 cmH2O; Vent YES
[2017-11-02] MEDS: CEFAZOLIN/Water 2 GM/20 ML SYRINGE SLOW IVP SCH ×2 (16:03→22:26)
[2017-11-02] MEDS ORDERED: Nitroglycerin 50 MG/250 ML BOT ONE (16:07)
[2017-11-02] MEDS ORDERED: Heparin 10,000 UNITS/ 10 ML VIAL ONE (16:07)
[2017-11-02] MEDS ORDERED: Aminocaproic Acid 5 GM/20 ML VIAL ONE (16:07)
[2017-11-02] MEDS ORDERED: Protamine Sulfate 250 MG/25 ML VIAL ONE (16:07)
[2017-11-02] MEDS ORDERED: Lidocaine 1% PF 5 ML VIAL ONE (16:07)
[2017-11-02] MEDS ORDERED: ePHEDrine/0.9% NaCl/PF SYRINGE 50 mg/10 ml ONE (16:07)
[2017-11-02] MEDS ORDERED: PHENYLEPHRINE-NS 100 MCG/ML 10 ML SYRINGE ONE (16:07)
[2017-11-02 16:29] LABS: Anion Gap 12 mmol/L (10-20); BUN (Urea Nitrogen) 18 mg/dL (8.4-25.7); Calc. Creatinine Clearance 228 mL/min (70-130); Carbon Dioxide 27 mmol/L (23-31); Chloride 102 mmol/L (98-107); Estimated GFR-MDRD Greater than 90
--- NOTE | 2017-11-02 16:38 | OP ---
PREOPERATIVE DIAGNOSIS: Aortic valve stenosis with congestive heart failure. PROCEDURE: Aortic valve replacement with #23 Magna valve. SURGEON: Maurizio Wilks M.D. SOLAR INSTALLER: Dontae Gabriel M.D. TRANSFUSION: One platelet pack. PROCEDURE IN DETAIL: After adequate anesthesia had been obtained, the patient was prepped and draped . Midline sternotomy incision was then carried out and the sternum was divided. The sternal bone wa s very thick at the sternal manubrial junction and difficulty with the saw blade passing through this area. Ultimately, the sternotomy was completed and retractors were placed. The pericardium was ope minerva and dissection was carried out to allow access to the supra-pericardial aorta and the ascending p ortion. After heparinization, the aorta and right atrium were cannulated. The patient was very deep chested and was a very large patient as well. After cardiopulmonary bypass was instituted, a right superior pulmonary vein sump was placed. CO2 insufflation was begun in the pericardial well. The ao rta was crossclamped and 1200 mL of [place] cardioplegic solution was given. Following this, the ao rtotomy was made and was slightly superior following which a trileaflet valve was excised severely di seased leaflets as well. Annulus was debrided as well as large amounts of plaque from the anterior m itral leaflet. After this had been done, the area was thoroughly irrigated and a 23 sizer fit snugly . 2-0 Ethibond mattress sutures were then placed circumferentially following which the valve was sea chip and Cor-Knot utilized to tying the sutures. Following this, the aorta was closed with a double l bernabe 5-0 Prolene suture. Air was vented from the heart via the vent and sump and the crossclamp was removed. Temporary ventricular and atrial wires were placed and the patient was then weaned from car diopulmonary bypass. Protamine was given systemically while decannulation was carried out and the ao rtic suture line secured with a 4-0 Prolene suture. Following this, a second mediastinal drain was p laced to compliment the CO2 drain and the patient was noted to have a coagulopathy at this time with bleeding excessive compared to when the protamine was initially given. Platelets were given, which s eemed to help the bleeding significantly. Sternal wires were placed in the manubrium; however, due t o the hardness of the bone only two wires could be placed. Zip ties were placed in the body and a si ngle 7 wire was ultimately placed in the lower portion of the body of the sternum. After vancomycin paste, platelet-enriched blood and platelet-poor plasma had been utilized on the sternal area. Wilson um was reapproximated. Subcutaneous tissue and skin were closed in layers and the patient is to be t aken to the ICU in guarded condition.
--- NOTE | 2017-11-02 17:09 | RAD ---
PORTABLE UPRIGHT CHEST 11/02/17 HISTORY: 71-year-old male with postop open heart. Inspiration is poor. Somewhat prominent cardiomediastinal shadow. Small left pleural effusion. Mild v ascular congestion. Endotracheal tube in satisfactory location. Right venous access catheter extendi ng down to near the level of the superior vena cava right atrial junction. IMPRESSION: Small left pleural effusion with some mild vascular congestion. Endotracheal tube in satisfactory loc ation. Recent postop midline sternotomy. Continued short term followup for clearing or stability. POS: DEANNE
--- NOTE | 2017-11-02 19:38 | PDOC.PN ---
- Subjective Encounter Start Date: 11/02/17 Encounter Start Time: 15:45 Patient seen and examined. s/p AVR. on [facility] Vent. No overnight events - Objective MAR Reviewed: Yes Vital Signs & Weight: Vital Signs (12 hours) Temp Pulse Resp BP BP Pulse Ox 11/02/17 18:20 70 18 99 11/02/17 18:00 18 11/02/17 16:00 98.4 F 11/02/17 15:03 71 86/45 L 11/02/17 14:55 96.3 F L 11/02/17 07:45 98.0 F 67 17 112/54 L 94 L Weight Admit Weight 283 lb 8 oz Weight 277 lb 8.992 oz Most Recent Monitor Data Heart Rate from ECG 73 NIBP 74/41 NIBP BP-Mean 54 Respiration from ECG 3 SpO2 95 I&O: 11/01/17 11/02/17 11/03/17 06:59 06:59 06:59 Intake Total 1320 1080 655 Output Total 950 900 820 Balance 370 180 -165 Result Diagrams: 11/02/17 15:05 11/02/17 15:05 Additional Labs: Accuchecks 11/02/17 11/02/17 11/02/17 18:23 17:05 16:01 POC Glucose 135 H 131 H 152 H 11/02/17 14:59 POC Glucose 178 H EKG Reviewed by me: Yes (Tele SR) Phys Exam - Physical Examination On [facility] Vent/Sedated Respiratory: no wheezing, no rhonchi Coarse BS B/L Cardiovascular: RRR, no rub Gastrointestinal: soft, positive bowel sounds Musculoskeletal: edema present Dx/Plan - Plan DVT proph w/SCDs IMPRESSION: 1. Severe Aortic stenosis s/p AVR 11/02 2. Elevated troponins - Cath 10/29 - normal coronaries (NSTEMI ruled out) 3. Hypokalemia - mild - prob due to diuretics - improving 4. Obesity BMI 35.5 6. Acute hypoxic/hypercapnic resp failure/Hyponatremia/Transudative pleural effusion/Metabolic encephalopathy/ hyponatremia/Lactic acidosis/dehydration - resolved. PLAN: * Cardiology/CT following * cont current meds as below * AM labs * CCU monitoring Review of Systems - Review of Systems Other: Cannot obtain due to sedation - Medications/Allergies Allergies/Adverse Reactions: Allergies Allergy/AdvReac Type Severity Reaction Status Date / Time No Known Allergies Allergy Verified 10/22/17 05:10 Medications: Current Medications Acetaminophen (Tylenol) 650 mg PO Q6H PRN PRN Reason: Headache/Fever Or Mild Pain Hydrocodone Bitart/Acetaminophen ([place] 5/325) 1 tab PO Q4H PRN PRN Reason: Moderate Pain (4-6) Hydrocodone Bitart/Acetaminophen ([place] 5/325) 2 tab PO Q4H PRN PRN Reason: Severe Pain (7-10) Al Hydroxide/Mg Hydroxide (Maalox) 30 ml PO Q4H PRN PRN Reason: Indigestion Albumin Human (Albumin 5%) 12.5 gm IVPB Q6H PRN PRN Reason: To Maintain SBP> 90 mmHG Stop: 11/03/17 14:51 Last Admin: 11/02/17 15:10 Dose: 12.5 gm Albumin Human (Albumin 5%) 25 gm IVPB Q6H PRN PRN Reason: To Maintain SBP > 90 mmHG Stop: 11/03/17 14:51 Albuterol/Ipratropium (Duoneb) 3 ml NEB [id number] [facility] Last Admin: 11/02/17 18:20 Dose: 3 ml Albuterol/Ipratropium (Duoneb) 3 ml NEB [id number] PRN PRN Reason: SHORTNESS OF BREATH Aspirin (Aspirin) 325 mg PO DAILY [facility] Bisacodyl (Dulcolax) 10 mg PO Q12H PRN PRN Reason: Constipation Bisacodyl (Dulcolax) 10 mg SD Q12H PRN PRN Reason: Constipation Cefazolin Sodium (Ancef) 2 gm SLOW IVP Q8H [facility] Stop: 11/03/17 06:51 Last Admin: 11/02/17 16:03 Dose: 2 gm Dextrose/Water (Dextrose 50%) 25 gm SLOW IVP PRN PRN PRN Reason: PER HYPOGLYCEMIC PROTOCOL Famotidine (Pepcid) 20 mg SLOW IVP Q12HR [facility] Fentanyl (Sublimaze) 25 mcg SLOW IVP Q2H PRN PRN Reason: Moderate Pain (4-6) Stop: 11/04/17 14:39 Fentanyl (Sublimaze) 50 mcg SLOW IVP Q2H PRN PRN Reason: Severe Pain (7-10) Stop: 11/04/17 14:39 Glucagon (Glucagon) 1 mg SC PRN PRN PRN Reason: PER HYPOGLYCEMIC PROTOCOL Guaifenesin/Dextromethorphan (Robitussin Dm) 15 ml PO Q4H PRN PRN Reason: Cough Hydralazine HCl (Apresoline) 10 mg SLOW IVP Q6H PRN PRN Reason: To Maintain SBP< 140mmHG Dopamine HCl/Dextrose (Dopamine/D5w) 250 mls @ 0 mls/hr IVPB PRN PRN; Protocol ; Titrate PRN Reason: To maintain SBP > 90 mmHG Hetastarch/Sodium Chloride (Hespan) 500 mls @ 0 mls/hr IVPB PRN PRN; As Directed PRN Reason: To Maintain SBP > 90mmHg Stop: 11/03/17 14:39 Norepinephrine Bitartrate (Levophed) 250 mls @ 0 mls/hr IVPB PRN PRN; Protocol ; Titrate PRN Reason: To maintain SBP > 90 mmHG Last Admin: 11/02/17 15:35 Dose: 250 mls Nicardipine HCl 25 mg/ Sodium (Chloride) 260 mls @ 0 mls/hr IVPB INF PRN; Protocol; Titrate PRN Reason: To Maintain SBP< 140mmHG Sodium Chloride (Normal Saline 0.9%) 1,000 mls @ 100 mls/hr IV .Q10H [facility] Last Admin: 11/02/17 15:10 Dose: 1,000 mls Vancomycin HCl 1.5 gm/ Sodium (Chloride) 300 mls @ 150 mls/hr IVPB Q12HR [facility] Stop: 11/03/17 10:59 Insulin Human Regular 100 (units/ Sodium Chloride) 101 mls @ 0 mls/hr IVPB INF [facility]; As Directed PRN Reason: Protocol Last Admin: 11/02/17 15:34 Dose: 101 mls Dextrose/Water (D5w) 1,000 mls @ 0 mls/hr IV INF PRN; As Directed PRN Reason: PRN HYPOGLYCEMIC PROTOCOL Insulin Detemir (Levemir) 0 units SC ONE PRN PRN Reason: POST-OPEN HEART PROTOCOL Stop: 11/03/17 14:58 Insulin Human Regular (Humulin R) 0 units SC Q4H PRN; Protocol PRN Reason: POST CABG SLIDING SCALE Morphine Sulfate (Morphine) 2 mg SLOW IVP Q15M PRN PRN Reason: Severe Pain (7-10) Last Admin: 11/02/17 17:36 Dose: 2 mg Ondansetron HCl (Zofran) 4 mg IVP Q6H PRN PRN Reason: Nausea/Vomiting Potassium Chloride (Kcl) 20 meq IVPB PRN PRN PRN Reason: K level </= 4.0 Last Admin: 11/02/17 16:19 Dose: 20 meq Promethazine HCl (Phenergan) 6.25 mg IM Q4H PRN PRN Reason: Nausea/Vomiting
[2017-11-02 19:46] LABS: Oxyhemoglobin 94.2 % (94.0-97.0); Sodium 139 mmol/L (135-148)
[2017-11-02 19:47] LABS: Mode CPAP; Pressure Support 10 cmH2O; Vent YES
[2017-11-02] MEDS: Fentanyl 100 MCG/2 ML VIAL SLOW IVP PRN ×2 (20:37→23:19)
[2017-11-02] MEDS: Famotidine/PF 20 mg/2ml Vial SLOW IVP SCH (20:39)
[2017-11-02] MEDS: Vancomycin HCl 1.5 GM in Sodium Chloride 0.9% 250 ML 300 ML IVPB SCH (20:40)
[2017-11-02 20:42] LABS: Hematocrit 36.3 % (42.0-52.0)
[2017-11-03 04:32] LABS: #Eosinphils 0.1 thou/uL (0.0-0.7); #Lymphocytes 0.9 thou/uL (1.20-3.40); #Monocytes 0.8 thou/uL (0.11-0.59); #Neutrophils 6.8 thou/uL (1.40-6.50); %Basophils 0.3 % (0.0-1.0); %Eosinophils 0.8 % (0.0-10.0); %Lymphocytes 10.8 % (21.0-51.0); %Monocytes 9.1 % (0.0-10.0); Hematocrit 33.8 % (42.0-52.0); Mean Platelet Volume 7.6 fL (7.4-10.4); Red Blood Cell (RBC) Count 3.41 mill/uL (4.70-6.10); White Blood Cell (WBC) Count 8.7 thou/uL (4.8-10.8)
[2017-11-03] MEDS: Sodium Chloride 0.9% 1,000 ML IV SCH ×2 (05:00→12:41)
[2017-11-03 05:31] LABS: Anion Gap 6 mmol/L (10-20); BUN (Urea Nitrogen) 24 mg/dL (8.4-25.7); Calc. Creatinine Clearance 193 mL/min (70-130); Calcium 8.2 mg/dL (7.8-10.44); Carbon Dioxide 35 mmol/L (23-31); Chloride 104 mmol/L (98-107); Estimated GFR-MDRD Greater than 90; Magnesium 2.3 mg/dL (1.6-2.6)
[2017-11-03] MEDS: CEFAZOLIN/Water 2 GM/20 ML SYRINGE SLOW IVP SCH (06:13)
[2017-11-03] MEDS: HYDROcodone/Acetaminophen 5/325 mg Tablet PO PRN ×2 (07:02→18:14)
[2017-11-03] MEDS: Famotidine/PF 20 mg/2ml Vial SLOW IVP SCH ×2 (08:58→20:07)
[2017-11-03] MEDS: Vancomycin HCl 1.5 GM in Sodium Chloride 0.9% 250 ML 300 ML IVPB SCH (08:58)
[2017-11-03] MEDS: Aspirin 325 MG TAB PO SCH (08:59)
--- NOTE | 2017-11-03 09:53 | RAD ---
1 VIEW CHEST: Date: 11/03/17 HISTORY: Status post open heart surgery. COMPARISON: 11/02/17. FINDINGS: Interval removal of an endotracheal tube. Right-sided central venous catheter is redemonstrated. Ster notomy wires are identified. Persistent opacification of the left hemithorax. Persistent cardiomegaly . Left-sided pleural effusion suspected. Pneumothorax is not appreciated. IMPRESSION: 1. Persistent opacification and postsurgical changes. 2. Interval removal of endotracheal tube. POS: LOC
--- NOTE | 2017-11-03 12:57 | PDOC.CTH ---
Cardiology Progress Note - Subjective First day post op only complaint is soreness. - Objective Vital Signs Temp Pulse Resp Pulse Ox 11/03/17 12:21 80 30 H 97 11/03/17 08:00 97.6 F 74 24 H 95 11/03/17 06:19 79 23 H 92 L 11/03/17 04:00 98.0 F Admit Weight 283 lb 8 oz Weight 274 lb 11.135 oz 11/02/17 11/03/17 11/04/17 06:59 06:59 06:59 Intake Total 1080 1798.0 Output Total 900 1400 125 Balance 180 398.0 -125 - Physical Examination General/Neuro: alert & oriented x3, NAD Neck: no JVD present Lungs: CTA Heart: RRR, other: (Soft 2 component rub. ) Abdomen: NT/ND Extremities: + edema B (1+) - Telemetry Telemetry Rhythm: NSR - Labs Result Diagrams: 11/03/17 03:40 11/03/17 03:40 Troponin/CKMB CK-MB (CK-2) 6.3 ng/mL (0-6.6) 10/23/17 10:01 Troponin I 0.025 ng/mL (< 0.028) 10/23/17 10:01 - Assessment/Plan 1. Severe 2. S/P AVR, #23 Magna bioprosthesis. PLAN: - Continue post op care - Aspirin for life. - PT once tolerated.
--- NOTE | 2017-11-03 13:35 | PRG ---
DATE OF SERVICE: 11/03/2017 SUBJECTIVE: The patient is seen and examined at the bedside. He is in CCU, bed C6. He is extubated . He is off insulin drip. He has the chest tubes in place. He has the Guzman with some bloodish flu id, which is most likely posttraumatic affect. He is doing quite well. He does not have much compla int except for his knee pains and some chest pain from the surgery. PHYSICAL EXAMINATION: VITAL SIGNS: His blood pressure is 125/47, pulse is 79, respiratory rate is 30, O2 saturation is 95% on O2. HEENT: Pupils are responding to light properly. Sclerae is nonicteric. NECK: Supple. LUNGS: The front chest is covered with the dressing. Breath sounds are diminished at both bases wit h few crackles bilaterally. HEART: S1, S2 normal, no S3, no S4. ABDOMEN: Soft, obese, nontender, nondistended. EXTREMITIES: No clubbing, cyanosis or edema. NEUROLOGIC: He is able to answer all my question properly. He is able to move his all 4 extremities . There is not any sensory deficits present. LABORATORY DATA: Showed white count of 8.7, hemoglobin 11.4, hematocrit 33.8 and platelet count is 1 44. Sodium of 141, potassium 4.2, chloride 104, CO2 35, BUN 24, creatinine 0.61. Glycemia is range from 112-150, magnesium 2.3, calcium 8.2. Chest x-ray personally reviewed by me showed interval greg nilton of an endotracheal tube and persistent opacification of the left hemithorax. There is no pneumot horax. There is a cardiomegaly. IMPRESSION: 1. Cerebrovascular accident, aortic stenosis, status post aortic valve replacement, yesterday. 2. Hypokalemia, corrected. 3. Obesity. 4. Elevated troponins with normal coronary arteries, status post cardiac catheterization during this hospitalization. 5. Acute hypoxic/hypercapnic respiratory failure, status post extubation. PLAN: Dr. Wilks will make decision about the further management of the patient's chest tubes. Now, we will continue current regimen. We will continue close monitoring in the CCU and we will obtain a. m. labs. His glycemia is doing quite well. I think we can try to advance his diet, but this is shahriar g to be managed by Dr. Wilks.
[2017-11-03] MEDS: Enoxaparin Sodium 40 MG/0.4 ML SYRINGE SC SCH (20:08)
[2017-11-04 04:57] LABS: #Eosinphils 0.2 thou/uL (0.0-0.7); #Lymphocytes 0.9 thou/uL (1.20-3.40); #Monocytes 0.9 thou/uL (0.11-0.59); #Neutrophils 6.9 thou/uL (1.40-6.50); %Basophils 0.4 % (0.0-1.0); %Eosinophils 1.7 % (0.0-10.0); %Lymphocytes 9.6 % (21.0-51.0); %Monocytes 10.2 % (0.0-10.0); Mean Platelet Volume 7.1 fL (7.4-10.4); White Blood Cell (WBC) Count 8.8 thou/uL (4.8-10.8)
[2017-11-04 05:23] LABS: Anion Gap 7 mmol/L (10-20); BUN (Urea Nitrogen) 23 mg/dL (8.4-25.7); Calc. Creatinine Clearance 206 mL/min (70-130); Calcium 8.4 mg/dL (7.8-10.44); Carbon Dioxide 33 mmol/L (23-31); Chloride 104 mmol/L (98-107); Estimated GFR-MDRD Greater than 90
[2017-11-04] MEDS: HYDROcodone/Acetaminophen 5/325 mg Tablet PO PRN ×2 (08:40→20:41)
[2017-11-04] MEDS: Aspirin 325 MG TAB PO SCH (08:43)
[2017-11-04] MEDS: Famotidine/PF 20 mg/2ml Vial SLOW IVP SCH ×2 (08:43→20:41)
--- NOTE | 2017-11-04 10:14 | RAD ---
1 VIEW CHEST: Date: 11/04/17 COMPARISON: 11/03/17. HISTORY: Status post open heart surgery. FINDINGS: Limited evaluation due to portable technique. Stable right-sided catheter. Sternotomy wires are noted . Persistent opacification left hemithorax. Small right-sided pleural effusion has developed. Prosthe tic heart valve is noted. IMPRESSION: 1. Limited evaluation. Postsurgical changes as above. 2. Small right-sided pleural effusion, since the prior exam. 3. Persistent opacification left lung base. POS: LOC
--- NOTE | 2017-11-04 10:46 | PRG ---
DATE OF SERVICE: 11/04/2017 SUBJECTIVE: The patient is seen and examined at the bedside today. He was seen in CCU bed 6. He is sitting up on his bed and eating breakfast. He does not have much complaints to offer. He feels be tter post-surgery. OBJECTIVE: VITAL SIGNS: Blood pressure is 115/53, pulse is 63, respiratory rate is 28, and O2 saturation is 93% . GENERAL: He is very obese man. His BMI is 39.8. HEENT: PERRLA. Sclerae nonicteric. NECK: Supple, obese. LUNGS: Breath sounds diminished at both bases with few crackles bilaterally at both bases. No wheez ing. CARDIOVASCULAR: S1, S2, somewhat distant, no S3, no S4. ABDOMEN: Obese and nontender. There is a big dressing and the chest tube coming out from underneath the dressing in the chest front area and that is connected to the seal. EXTREMITIES: 1+ peripheral edema similar bilaterally. NEUROLOGIC: He is able to answer my questions and follow all my commands. I do not see any focal de ficits. LABORATORY DATA: Showed a white count of 8.8, hemoglobin 10.0, hematocrit 31.0, platelet count is 14 9. His sodium is 140, potassium 4.1, chloride 104, CO2 33, BUN 23, creatinine 0.57. Glycemia is ran ging from 128-147, calcium is 8.4. Microbiology, nothing new. Chest x-ray was done this morning and it showed cardiomegaly and I believe the patient is rotated for this portable x-ray which makes diff icult to read the left side of the chest, we will see what the radiologist has to say. IMPRESSION: 1. Severe aortic stenosis, status post aortic valve replacement on 11/02/2017. 2. Hypokalemia. 3. Obesity. 4. Elevated troponins with normal coronary arteries, status post cardiac catheterization during this hospitalization. 5. Acute hypoxemic hypercapnic respiratory failure, status post extubation. PLAN: The case is managed basically by Dr. Wilks, surgeon, who did aortic valve replacement. His gl ycemia is doing well and further recommendations from Dr. Wilks.
[2017-11-04] MEDS ORDERED: Bisacodyl 5 MG TAB PO PRN (11:11)
[2017-11-04] MEDS ORDERED: Bisacodyl 10 MG SUPP PR PRN (11:11)
[2017-11-04] MEDS ORDERED: Milk Of Magnesia 30 ML UDCUP PO PRN (11:11)
[2017-11-04] MEDS ORDERED: Nitroglycerin 0.4 MG TAB 1 EACH SL PRN (11:11)
[2017-11-04] MEDS ORDERED: Guaifenesin DM 100-10/5 ML UDCUP PO PRN (11:11)
[2017-11-04] MEDS ORDERED: Mineral Oil ENEMA PR PRN (11:11)
--- NOTE | 2017-11-04 12:35 | PDOC.CTH ---
Cardiology Progress Note - Subjective Still has CT in. Feels better than yesterday. - Objective Vital Signs Temp Pulse Resp Pulse Ox 11/04/17 12:00 97.4 F L 11/04/17 08:00 98.5 F 11/04/17 07:34 93 L 11/04/17 07:32 63 28 H 11/04/17 05:00 97.7 F 11/04/17 00:40 81 29 H 92 L Admit Weight 283 lb 8 oz Weight 285 lb 7.978 oz 11/03/17 11/04/17 11/05/17 06:59 06:59 06:59 Intake Total 1798.0 1362 300 Output Total 1400 777 155 Balance 398.0 585 145 - Physical Examination General/Neuro: alert & oriented x3, NAD Neck: no JVD present Lungs: CTA, unlabored respirations Heart: RRR Abdomen: NT/ND Extremities: other: (no amelia,a) - Telemetry Telemetry Rhythm: NSR - Labs Result Diagrams: 11/04/17 04:45 11/04/17 04:45 Troponin/CKMB CK-MB (CK-2) 6.3 ng/mL (0-6.6) 10/23/17 10:01 Troponin I 0.025 ng/mL (< 0.028) 10/23/17 10:01 - Assessment/Plan 1. Severe 2. S/P AVR, #23 Magna bioprosthesis. PLAN: - Aspirin for life. - PT once tolerated.
[2017-11-04] MEDS: Furosemide 40 MG TAB PO SCH (20:41)
[2017-11-04] MEDS: Enoxaparin Sodium 40 MG/0.4 ML SYRINGE SC SCH (20:42)
[2017-11-05] MEDS: HYDROcodone/Acetaminophen 5/325 mg Tablet PO PRN (00:21)
--- NOTE | 2017-11-05 05:55 | EKG ---
Test Reason : POST CABG Blood Pressure : / mmHG Vent. Rate : 070 BPM Atrial Rate : 070 BPM P-R Int : 208 ms QRS Dur : 176 ms QT Int : 500 ms P-R-T Axes : 000 065 125 degrees QTc Int : 540 ms Electronic ventricular pacemaker When compared with ECG of 23-OCT-2017 09:21, (Unconfirmed) Electronic ventricular pacemaker has replaced Sinus rhythm Confirmed by RONNI BROWN ([id number]) on 11/05/2017 5:55:28 AM Referred By: SUE Confirmed By:RONNI BROWN
[2017-11-05] MEDS: Furosemide 40 MG TAB PO SCH ×2 (09:26→22:06)
[2017-11-05] MEDS: Famotidine/PF 20 mg/2ml Vial SLOW IVP SCH ×2 (09:26→22:06)
[2017-11-05] MEDS: Aspirin 325 mg Enteric Coated Tablet PO SCH (09:26)
[2017-11-05] MEDS: Potassium Chloride 10 MEQ TAB PO SCH (09:26)
[2017-11-05] MEDS: Mag-Al 1200 mg/1200 mg/30 ML UDCUP PO PRN ×2 (09:27→18:22)
--- NOTE | 2017-11-05 15:11 | PDOC.PN ---
- Subjective Encounter Start Date: 11/05/17 Encounter Start Time: 13:35 -: old records requested/rev Pt seen and examined, chart reviewed in its entirety. This is my first visit in 2 weeks since admission. pt found to have critical , s/p AVR now. feeling better, but still weak and having chronic knee pain. Agreeable to rehab, referral made, awaiting acceptance. 10 point ROS performed and neg for all systems except as per HPI - Objective Resuscitation Status: FULL MAR Reviewed: Yes Vital Signs & Weight: Vital Signs (12 hours) Temp Pulse Pulse Pulse Resp BP BP 11/05/17 13:23 77 16 11/05/17 11:22 82 20 11/05/17 10:13 86 77 167/79 H 131/76 11/05/17 08:00 97.3 F L 81 16 11/05/17 07:58 11/05/17 07:33 11/05/17 07:32 81 16 11/05/17 07:20 97.3 F L 84 18 11/05/17 04:00 97.9 F 77 20 BP Pulse Ox Pulse Ox Pulse Ox 11/05/17 13:23 96 11/05/17 11:22 126/68 100 11/05/17 10:13 94 L 92 L 11/05/17 08:00 100 11/05/17 07:58 94 L 11/05/17 07:33 100 11/05/17 07:32 97 11/05/17 07:20 153/67 H 100 11/05/17 04:00 127/77 100 Weight Admit Weight 283 lb 8 oz Weight 276 lb 9 oz Most Recent Monitor Data Heart Rate from ECG 75 NIBP 140/60 NIBP BP-Mean 85 Respiration from ECG 22 SpO2 100 I&O: 11/04/17 11/05/17 11/06/17 06:59 06:59 06:59 Intake Total 1362 740 60 Output Total 777 390 125 Balance 585 350 -65 Result Diagrams: 11/04/17 04:45 11/04/17 04:45 Additional Labs: Accuchecks 11/04/17 11/02/17 11/02/17 17:35 14:13 13:20 POC Glucose 130 H 157 H 150 H 11/02/17 11/02/17 11/02/17 11:43 11:20 10:52 POC Glucose 157 H 141 H 129 H Radiology Reviewed by me: Yes EKG Reviewed by me: Yes Phys Exam - Physical Examination Constitutional: NAD HEENT: PERRLA, moist MMs, sclera anicteric, oral pharynx no lesions Neck: no nodes, no JVD, supple, full ROM Respiratory: no wheezing, no rales, no rhonchi, clear to auscultation bilateral Cardiovascular: RRR, no significant murmur, no rub Gastrointestinal: soft, non-tender, no distention, positive bowel sounds Musculoskeletal: pulses present, edema present Neurological: non-focal, normal sensation, moves all 4 limbs Lymphatic: no nodes Psychiatric: normal affect, A&O x 3 Skin: no rash, normal turgor, cap refill <2 seconds Dx/Plan (1) Critical aortic valve stenosis Code(s): I35.0 - NONRHEUMATIC AORTIC (VALVE) STENOSIS Status: Resolved (2) Bioprosthetic aortic valve replacement during current hospitalization Code(s): Z95.3 - PRESENCE OF XENOGENIC HEART VALVE Status: Acute (3) Severe obesity (BMI 35.0-39.9) Code(s): E66.01 - MORBID (SEVERE) OBESITY DUE TO EXCESS CALORIES Status: Chronic (4) Effusion of bursa of left knee Code(s): M25.462 - EFFUSION, LEFT KNEE Status: Chronic (5) Hypokalemia Code(s): E87.6 - HYPOKALEMIA Status: Resolved Comment: Resolved. (6) Hyponatremia Code(s): E87.1 - HYPO-OSMOLALITY AND HYPONATREMIA Status: Resolved Comment: resolved.. (7) NSTEMI (non-ST elevated myocardial infarction) Code(s): I21.4 - NON-ST ELEVATION (NSTEMI) MYOCARDIAL INFARCTION Status: Resolved (8) Pleural effusion on left Code(s): J90 - PLEURAL EFFUSION, NOT ELSEWHERE CLASSIFIED Status: Chronic Comment: minimal , due to chf. - Plan cont current plan of care, PT/OT, medical social consultant * . cleared by Dr Wilks to go to rehab when arranged. CCM at present
[2017-11-05 15:16] LABS: Oxyhemoglobin 94.3 % (94.0-97.0); Sodium 139 mmol/L (135-148)
[2017-11-05 15:16] LABS: Oxyhemoglobin 96.9 % (94.0-97.0); Sodium 137 mmol/L (135-148)
[2017-11-05 15:16] LABS: Base Excess 8.3 mEq/L (0 (+/- 2.5)); O2 Content (venous) 13.1 VOL% (12.5-17.5); pH (venous) 7.45 (7.35-7.45)
[2017-11-05 15:16] LABS: Oxyhemoglobin 96.7 % (94.0-97.0); Sodium 138 mmol/L (135-148)
[2017-11-05 15:17] LABS: Oxyhemoglobin 94.9 % (94.0-97.0); Sodium 138 mmol/L (135-148)
[2017-11-05] MEDS: Enoxaparin Sodium 40 MG/0.4 ML SYRINGE SC SCH (22:06)
[2017-11-06 06:24] LABS: #Eosinphils 0.3 thou/uL (0.0-0.7); #Lymphocytes 1.3 thou/uL (1.20-3.40); #Monocytes 0.7 thou/uL (0.11-0.59); #Neutrophils 5.3 thou/uL (1.40-6.50); %Basophils 0.3 % (0.0-1.0); %Eosinophils 4.5 % (0.0-10.0); %Lymphocytes 17.2 % (21.0-51.0); %Monocytes 8.7 % (0.0-10.0); Hematocrit 28.7 % (42.0-52.0); Mean Platelet Volume 6.8 fL (7.4-10.4); Red Blood Cell (RBC) Count 2.86 mill/uL (4.70-6.10); White Blood Cell (WBC) Count 7.7 thou/uL (4.8-10.8)
[2017-11-06 06:49] LABS: BUN (Urea Nitrogen) 12 mg/dL (8.4-25.7); Calc. Creatinine Clearance 214 mL/min (70-130); Calcium 8.6 mg/dL (7.8-10.44); Estimated GFR-MDRD Greater than 90; Magnesium 2.1 mg/dL (1.6-2.6)
[2017-11-06 06:58] LABS: Anion Gap 12 mmol/L (10-20); Carbon Dioxide 36 mmol/L (23-31); Chloride 97 mmol/L (98-107)
[2017-11-06 09:16] LABS: Mode OR ABG; Vent YES
[2017-11-06 09:17] LABS: Mode OR ABG; Vent YES
[2017-11-06 09:18] LABS: Vent YES
[2017-11-06 09:19] LABS: Vent YES
[2017-11-06 09:19] LABS: Mode OR ABG
[2017-11-06 09:20] LABS: Mode OR ABG
[2017-11-06 09:39] LABS: Sodium 140 mmol/L (135-148)
[2017-11-06 09:41] LABS: Mode OR ABG; Vent YES
[2017-11-06] MEDS ORDERED: Furosemide 40 MG/4 ML VIAL SLOW IVP SCH (10:00)
[2017-11-06] MEDS: Famotidine/PF 20 mg/2ml Vial SLOW IVP SCH ×2 (10:11→21:04)
[2017-11-06] MEDS: Furosemide 40 MG TAB PO SCH ×2 (10:11→21:04)
[2017-11-06] MEDS: Potassium Chloride 10 MEQ TAB PO SCH (10:11)
[2017-11-06] MEDS: Aspirin 325 mg Enteric Coated Tablet PO SCH (10:12)
[2017-11-06] MEDS ORDERED: Albuterol Sulfate 2.5 mg/3 ml Neb NEB PRN (11:45)
--- NOTE | 2017-11-06 13:04 | PDOC.PN ---
- Subjective Encounter Start Date: 11/06/17 Encounter Start Time: 11:40 Pt complained earlier of left arm numbness, unsure of onset, OT felt that his left arm was significantly weaker than prior visits. No CP at present, but had short sternal CP with deep inspiration. C/O new SOB on my arrival, just got a neb and feeling a little better. No N/v/D/c, no F/C, no cough or sputum production 10 point ROS performed and neg for all systems except as per HPI - Objective Resuscitation Status: full MAR Reviewed: Yes Vital Signs & Weight: Vital Signs (12 hours) Temp Pulse Pulse Resp BP BP Pulse Ox 11/06/17 11:33 69 18 100 11/06/17 10:55 98 F 78 16 140/73 90 L 11/06/17 10:10 98.5 F 79 16 131/72 93 L 11/06/17 09:04 75 139/71 11/06/17 04:00 97.8 F 79 20 132/72 97 11/06/17 01:29 95 11/06/17 01:28 95 Weight Admit Weight 283 lb 8 oz Weight 280 lb Most Recent Monitor Data Heart Rate from ECG 75 NIBP 140/60 NIBP BP-Mean 85 Respiration from ECG 22 SpO2 100 I&O: 11/05/17 11/06/17 11/07/17 06:59 06:59 06:59 Intake Total 740 700 Output Total 390 125 Balance 350 575 Result Diagrams: 11/06/17 05:46 11/06/17 05:46 Radiology Reviewed by me: Yes EKG Reviewed by me: Yes Phys Exam - Physical Examination Constitutional: NAD obese, tired, chronically ill-appearing HEENT: PERRLA, moist MMs, sclera anicteric, oral pharynx no lesions Neck: no nodes, no JVD, supple, full ROM Respiratory: no rales, no rhonchi, clear to auscultation bilateral inital insp and exp wheezes, cleared after a few minutes Cardiovascular: RRR, no significant murmur, no rub Gastrointestinal: soft, non-tender, no distention, positive bowel sounds Musculoskeletal: pulses present, edema present Neurological: non-focal, normal sensation, moves all 4 limbs 5/5 strength in both arms, ? 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 Lymphatic: no nodes Psychiatric: normal affect, A&O x 3 Skin: no rash, normal turgor, cap refill <2 seconds Dx/Plan (1) Critical aortic valve stenosis Code(s): I35.0 - NONRHEUMATIC AORTIC (VALVE) STENOSIS Status: Resolved Comment: s/p AVR (2) Bioprosthetic aortic valve replacement during current hospitalization Code(s): Z95.3 - PRESENCE OF XENOGENIC HEART VALVE Status: Acute (3) Severe obesity (BMI 35.0-39.9) Code(s): E66.01 - MORBID (SEVERE) OBESITY DUE TO EXCESS CALORIES Status: Chronic (4) Effusion of bursa of left knee Code(s): M25.462 - EFFUSION, LEFT KNEE Status: Chronic (5) Hypokalemia Code(s): E87.6 - HYPOKALEMIA Status: Resolved Comment: Resolved. (6) Hyponatremia Code(s): E87.1 - HYPO-OSMOLALITY AND HYPONATREMIA Status: Resolved Comment: resolved.. (7) NSTEMI (non-ST elevated myocardial infarction) Code(s): I21.4 - NON-ST ELEVATION (NSTEMI) MYOCARDIAL INFARCTION Status: Resolved (8) Pleural effusion on left Code(s): J90 - PLEURAL EFFUSION, NOT ELSEWHERE CLASSIFIED Status: Chronic Comment: minimal , due to chf. Left sided. stable on todays CXR (9) Left hemiparesis Code(s): G81.94 - HEMIPLEGIA, UNSPECIFIED AFFECTING LEFT NONDOMINANT SIDE Status: Acute Comment: resolved by my arrival. CT and CTA neg to my reading, awaiting official report - Plan cont current plan of care, PT/OT, oncology social work, incentive spirometry, out of bed/ambulate * .
--- NOTE | 2017-11-06 13:04 | CT ---
CTA BRAIN WITH AND WITHOUT IV CONTRAST: INDICATIONS: New left-sided weakness and numbness in a 71-year-old male. COMPARISON: Noncontrast CT of the brain dated 10/21/2017 and 01/20/2016. TECHNIQUE: Multiple CTA images were obtained of the head with and without IV contrast, utilizing IV contrast and 3D reformatted imaging. FINDINGS: There is soft tissue prominence within the left parietal scalp, which is new from the comparison exam , suspicious for a small contusion. No definite acute infarct, hemorrhage, or hydrocephalus is present. No area of abnormal enhancement is grossly evident. There is focal moderate to high grade stenosis involving the mid basilar artery. The vertebral arteries appear patent. The right vertebral artery is slightly diminutive. There is mild atherosclerotic irregularity involving the petrous segments of both ICAs. There are calcificat ions involving both cavernous carotids. No hemodynamically significant stenosis, occlusion, or aneur ysmal formation is grossly evident. IMPRESSION: 1. 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 No additional focal region of stenosis, occlusion, or aneurysmal formation demonstrated. 2. No acute infarct, hemorrhage, or hydrocephalus demonstrated. 3. Interval developmental of a left parietal scalp contusion. Recommend correlation with any histor y of recent fall. POS: LOC
[2017-11-06] MEDS ORDERED: Iopamidol 370 76% 100 ML VIAL ONE (13:10)
--- NOTE | 2017-11-06 13:39 | RAD ---
UPRIGHT PORTABLE CHEST ONE VIEW: History: 71-year-old male with chest pain, shortness of breath, and recent ABR. FINDINGS: There is some progressive left pleural effusion and homogeneous opacity. Right pleural effusion. Stab le appearing cardiomediastinal silhouette. Post underlying sternotomy. Right subclavian catheter. IMPRESSION: Stable prominent cardiomediastinal shadow. Some increasing left pleural opacity. Stable right pleural changes. Mild bilateral vascular congestion. Continued short term follow up. POS: DEANNE
[2017-11-06 15:33] VITALS: BMI 39.0
[2017-11-06] MEDS: HYDROcodone/Acetaminophen 5/325 mg Tablet PO PRN (16:43)
[2017-11-06] MEDS ORDERED: Metolazone 5 MG TAB PO SCH (18:15)
[2017-11-06] MEDS: Lisinopril 5 MG TAB PO SCH (21:03)
[2017-11-06] MEDS: Enoxaparin Sodium 40 MG/0.4 ML SYRINGE SC SCH (21:04)
[2017-11-07 05:36] LABS: #Eosinphils 0.4 thou/uL (0.0-0.7); #Lymphocytes 1.3 thou/uL (1.20-3.40); #Monocytes 0.8 thou/uL (0.11-0.59); %Basophils 0.4 % (0.0-1.0); %Eosinophils 4.6 % (0.0-10.0); %Lymphocytes 13.4 % (21.0-51.0); %Monocytes 8.1 % (0.0-10.0); Hematocrit 34.5 % (42.0-52.0); Mean Platelet Volume 6.5 fL (7.4-10.4); White Blood Cell (WBC) Count 9.5 thou/uL (4.8-10.8)
[2017-11-07 05:44] LABS: BUN (Urea Nitrogen) 14 mg/dL (8.4-25.7); Calc. Creatinine Clearance 161 mL/min (70-130); Calcium 9.1 mg/dL (7.8-10.44); Estimated GFR-MDRD Greater than 90
[2017-11-07 05:53] LABS: Anion Gap 14 mmol/L (10-20); Carbon Dioxide 36 mmol/L (23-31); Chloride 92 mmol/L (98-107)
[2017-11-07] MEDS ORDERED: Potassium Chloride 20 MEQ TAB PO SCH (06:00)
[2017-11-07] MEDS: Famotidine/PF 20 mg/2ml Vial SLOW IVP SCH (08:40)
[2017-11-07] MEDS: Aspirin 325 mg Enteric Coated Tablet PO SCH (08:40)
[2017-11-07] MEDS: Metoprolol Tartrate 25 MG TAB PO SCH ×2 (08:41→20:26)
[2017-11-07] MEDS: Lisinopril 5 MG TAB PO SCH ×2 (08:41→20:26)
[2017-11-07] MEDS: Furosemide 40 MG TAB PO SCH ×2 (08:41→20:25)
[2017-11-07] MEDS: Potassium Chloride 20 MEQ TAB PO SCH ×3 (08:47→18:44)
--- NOTE | 2017-11-07 09:53 | RAD ---
SINGLE VIEW CHEST: Date: 11/07/17 COMPARISON: 11/06/17. HISTORY: Shortness of breath and tachypnea. Congestive heart failure. FINDINGS: Single view of the chest shows an enlarged but stable cardiomediastinal silhouette. The patient is st atus post sternotomy. There is a small left pleural effusion. No change has occurred compared to the prior exam. IMPRESSION: Cardiomegaly with small left pleural effusion. POS: LOC
--- NOTE | 2017-11-07 11:59 | PDOC.PN ---
- Subjective Encounter Start Date: 11/07/17 Encounter Start Time: 09:35 Pt feeling much better. left arm weakness resolved yesterday and hasnt recurred. Slept well, breathing is much better. Wanting to get up to a chair. Fara CP, no SOb, no orthopnea, no n/V/D/C, no F/C Son at bedside, updated to CXT, CT/CTA results. 10 point ROS performed and neg for all systems except as per HPI - Objective Resuscitation Status: FULL MAR Reviewed: Yes Vital Signs & Weight: Vital Signs (12 hours) Temp Pulse Resp BP BP Pulse Ox 11/07/17 11:30 87 20 92 L 11/07/17 08:41 89 11/07/17 07:55 98.1 F 89 20 114/66 93 L 11/07/17 06:55 89 22 H 88 L 11/07/17 04:27 99.0 F 93 28 H 124/90 89 L 11/07/17 00:31 88 16 90 L Weight Admit Weight 283 lb 8 oz Weight 275 lb Most Recent Monitor Data Heart Rate from ECG 75 NIBP 140/60 NIBP BP-Mean 85 Respiration from ECG 22 SpO2 100 I&O: 11/06/17 11/07/17 11/08/17 06:59 06:59 06:59 Intake Total 700 Output Total 125 Balance 575 Result Diagrams: 11/07/17 04:32 11/07/17 04:32 Radiology Reviewed by me: Yes EKG Reviewed by me: Yes Phys Exam - Physical Examination Constitutional: NAD HEENT: PERRLA, moist MMs, sclera anicteric, oral pharynx no lesions Neck: no nodes, no JVD, supple, full ROM Respiratory: no wheezing, no rales, no rhonchi posterior left crackles in base, better air movement Cardiovascular: RRR, no significant murmur, no rub Gastrointestinal: soft, non-tender, no distention, positive bowel sounds Musculoskeletal: pulses present, edema present left knee effusion stable, no heat Neurological: non-focal, normal sensation, moves all 4 limbs Lymphatic: no nodes Psychiatric: normal affect, A&O x 3 Skin: no rash, normal turgor, cap refill <2 seconds Dx/Plan (1) Critical aortic valve stenosis Code(s): I35.0 - NONRHEUMATIC AORTIC (VALVE) STENOSIS Status: Resolved Comment: s/p AVR (2) Bioprosthetic aortic valve replacement during current hospitalization Code(s): Z95.3 - PRESENCE OF XENOGENIC HEART VALVE Status: Acute (3) Severe obesity (BMI 35.0-39.9) Code(s): E66.01 - MORBID (SEVERE) OBESITY DUE TO EXCESS CALORIES Status: Chronic (4) Effusion of bursa of left knee Code(s): M25.462 - EFFUSION, LEFT KNEE Status: Chronic (5) Hypokalemia Code(s): E87.6 - HYPOKALEMIA Status: Acute Comment: replaced, check mag, repeat in AM (6) Hyponatremia Code(s): E87.1 - HYPO-OSMOLALITY AND HYPONATREMIA Status: Resolved Comment: resolved.. (7) NSTEMI (non-ST elevated myocardial infarction) Code(s): I21.4 - NON-ST ELEVATION (NSTEMI) MYOCARDIAL INFARCTION Status: Resolved (8) Pleural effusion on left Code(s): J90 - PLEURAL EFFUSION, NOT ELSEWHERE CLASSIFIED Status: Chronic Comment: minimal , due to chf. Left sided. stable on CXR (9) Left hemiparesis Code(s): G81.94 - HEMIPLEGIA, UNSPECIFIED AFFECTING LEFT NONDOMINANT SIDE Status: Acute Comment: resolved. CT and CTA neg except for basilar artery stenosis. no dizziness - Plan cont current plan of care, PT/OT, social insurance adviser, out of bed/ambulate * .
[2017-11-07] MEDS: Famotidine 20 MG TAB PO SCH (20:25)
[2017-11-07] MEDS: Enoxaparin Sodium 40 MG/0.4 ML SYRINGE SC SCH (20:26)
[2017-11-08 05:08] LABS: #Eosinphils 0.3 thou/uL (0.0-0.7); #Lymphocytes 1.7 thou/uL (1.20-3.40); #Monocytes 0.8 thou/uL (0.11-0.59); #Neutrophils 5.9 thou/uL (1.40-6.50); %Basophils 0.4 % (0.0-1.0); %Eosinophils 3.6 % (0.0-10.0); %Monocytes 9.3 % (0.0-10.0); Hematocrit 32.4 % (42.0-52.0); Mean Platelet Volume 6.2 fL (7.4-10.4); Red Blood Cell (RBC) Count 3.29 mill/uL (4.70-6.10); White Blood Cell (WBC) Count 8.8 thou/uL (4.8-10.8)
[2017-11-08 05:28] LABS: BUN (Urea Nitrogen) 21 mg/dL (8.4-25.7); Calc. Creatinine Clearance 117 mL/min (70-130); Calcium 9.2 mg/dL (7.8-10.44); Cholesterol 136 mg/dl (< 200 Desired); Estimated GFR-MDRD 73; LDL Cholesterol, Calculated 87 mg/dL; Magnesium 2.1 mg/dL (1.6-2.6)
[2017-11-08 05:37] LABS: Anion Gap 14 mmol/L (10-20); Carbon Dioxide 33 mmol/L (23-31); Chloride 95 mmol/L (98-107)
[2017-11-08] MEDS: Lisinopril 5 MG TAB PO SCH (10:20)
[2017-11-08] MEDS: Famotidine 20 MG TAB PO SCH (10:20)
[2017-11-08] MEDS: Aspirin 325 mg Enteric Coated Tablet PO SCH (10:20)
[2017-11-08] MEDS: Metoprolol Tartrate 25 MG TAB PO SCH (10:20)
[2017-11-08 12:10] VITALS: TEMP 97.8
[2017-11-08 13:09] VITALS: BP 163/84
--- NOTE | 2017-11-08 15:01 | DIS ---
DATE OF ADMISSION: 10/22/2017 DATE OF DISCHARGE: 11/08/2017 DISCHARGE DIAGNOSES: 1. Acute on chronic systolic and diastolic congestive heart failure. 2. Critical aortic stenosis. 3. Status post aortic valve replacement. 4. Severe obesity. 5. Chronic knee pain. 6. Demand ischemia secondary to severe aortic stenosis. 7. Hypokalemia. 8. Hypomagnesemia. 9. Acute hypoxic and hypercapnic respiratory failure. 10. Hyponatremia. 11. Transudative pleural effusion. 12. Metabolic encephalopathy, resolved. 13. Moderate dehydration. CONSULTATIONS: 1. Cardiology, Dr. Almas Morocho. 2. Cardiothoracic surgery, Dr. Wilks. 3. Pulmonary and Critical Care, Dr. Dayne George. PROCEDURES: 1. Percutaneous transluminal coronary angiography. He had normal coronary arteries. 2. 2D echocardiogram on 10/22/2017 that showed EF of 50%-55%, diastolic dysfunction, normal LV size, severely dilated OA, severe aortic stenosis, mild TR. 3. On 10/15/2017, patient underwent left-sided pleural drainage and catheter insertion under ultraso und guidance by Dr. Dayne George. 4. On 11/02/2017, the patient underwent aortic valve replacement with a #[address] Maurizio Wilks. HISTORY AND PHYSICAL: Mr. Shea is a pleasant 71-year-old obese gentleman who was admitted on 10/22/2017. He presented to the emergency department with complaints of knee pain and a bdominal pain. He did have an extensive one and half year history of decline and finding it to the oint where he fell and became too weak to get himself up. He was taken to an outside ER for evaluati on and found to have no fracture and had decreased activity. Due to physical deconditioning and abov e mentioned abdominal pain, patient was brought to the emergency department for evaluation. He was found to have dehydration, subjective fevers, cough, and elevated lactic acid, severe obesity and acute and chronic knee pain. We were called for admission for workup. HOSPITAL COURSE: The patient was seen and examined by me in the emergency department. He was covere d with Rocephin and azithromycin for possible early community-acquired pneumonia. Serial cardiac bio markers were obtained and patient appeared intravascularly volume depleted. He was placed on gentle IV fluid hydration. Overnight on 10/22/2017-10/23/2017, patient was followed by Dr. Debra Mayer. Pulmonary and Critica l Care was consulted and the patient did have an ABG with pH of 7.1 and pCO2 of 110. He was admitted to the ICU, started on BiPAP and Pulmonary was called. Pulmonary came and evaluated the patient and noted he had a large effusion. The effusion was tapped, slightly transudative. He was started on s teroids and IV fluids were held. By 10/24/2017, patient was more alert. He is off of BiPAP on a nasal cannula and was feeling somewha t better. On 10/25/2017; the patient continued to improve with less shortness of breath. Echocardiogram is don e with the above findings. Cardiology consulted for CHF. He was seen by Dr. Almas Morocho at that d ay, who recommended continued diuretic therapy and felt he would need a valve replacement and was arr anged to have a cardiac catheterization in the following days. On 10/26/2017, Dr. Belkys Duckworth took over for the hospitalist group for the next several days. The patient was tuned up. He was taken to the track laborer that showed normal coronary arteries. [facility], Dr. Wilks was consulted and saw the patient on 10/29/2017. Dr. Wilks felt the patient was appro priate for aortic valve replacement and possible left atrial appendage ligation and arrangement was [facility] for him to undergo surgery on 11/02/2017. On 10/30/2017 to 11/02/2017, the patient remained stab le. Chest x-ray remained stable, and on 11/02/2017 the patient went to surgery for aortic valve repl acement with the above-mentioned valve. Postoperatively, he did well. He was transferred out of the ICU to the floor on 11/05/2017. That day I took the case back over. He was still having some short ness of breath and was agreeable to going to rehabilitation, so referrals were made. On 11/06/2017, the patient developed left arm numbness and tingling. There was some concern of layo e. A CT angiogram and CT of the head were unremarkable. His numbness and tingling went away and he went back to his baseline. He continued to improve though did complain of shortness of breath. I be lieve it was mechanical due to his positioning in the bed. His oxygen levels remained good and from 11/06/2017-11/08/2017, his breathing improved. He was diuresed back to a dry weight, and on 11/08/20 he was stable for discharge to rehabilitation. PHYSICAL EXAMINATION: The patient was seen and examined on the day of discharge. Discharge plan and disposition were discussed with the patient face to face at the bedside. DISCHARGE MEDICATIONS: 1. Tylenol p.r.n. 2. Albuterol sulfate 2.5 mg q.2 hours p.r.n. shortness of breath or wheezing. 3. Maalox 30 mL q.4 hours p.r.n. 4. Aspirin 325 mg daily. 5. Guaifenesin DM 100/10 15 mL q.4 hours p.r.n. cough. 6. Hydrocodone/APAP 5/325 1-2 tablet daily 4 hours as needed for moderate to severe pain. 7. DuoNebs q.6 hours. 8. Lisinopril 5 mg p.o. b.i.d. 9. Metoprolol tartrate 12.5 mg p.o. b.i.d. 10. Potassium chloride 20 mEq twice daily. 11. Lasix 40 mg daily before food. DISPOSITION: The patient is being discharged to inpatient rehabilitation at [facility]. DISCHARGE ACTIVITY: As per cardiopulmonary limits. DISCHARGE DIET: Heart healthy. THERAPIES ORDERED: Occupational therapy and physical therapy and nebulizer treatments. FOLLOWUP APPOINTMENTS: 1. Primary care physician within a week. 2. Dr. Wilks in 2-3 weeks. 3. Cardiology in 2-3 weeks. Likely need to move into the Heart Failure Clinic.
[2017-11-09] MEDS ORDERED: Furosemide 40 MG TAB PO SCH (07:30)
== END 2017-11-08 14:28 | DRG 216 ==
LOC: ERS 19:15 → 2SE 10-22 01:07 → OBSVTOIN 10-22 10:09 → CCU 10-23 11:38 → 2NO 10-25 08:29 → CCU 11-02 09:22 → 2NO 11-04 23:58
PROVIDERS: ADMIT Internal Medicine Infectious Disease; ATTEND Internal Medicine Infectious Disease
PROC: 5A09357 Assistance with Respiratory Ventilation, Less than 24 Consecutive Hours, Continuous Positive Airway Pressure (ICD-10-PCS; principal; 2017-10-23)
PROC: 0W9B30Z Drainage of Left Pleural Cavity with Drainage Device, Percutaneous Approach (ICD-10-PCS; 2017-10-23)
PROC: 4A023N7 Measurement of Cardiac Sampling and Pressure, Left Heart, Percutaneous Approach (ICD-10-PCS; 2017-10-29)
PROC: B2111ZZ Fluoroscopy of Multiple Coronary Arteries using Low Osmolar Contrast (ICD-10-PCS; 2017-10-29)
PROC: B2151ZZ Fluoroscopy of Left Heart using Low Osmolar Contrast (ICD-10-PCS; 2017-10-29)
PROC: 02RF08Z Replacement of Aortic Valve with Zooplastic Tissue, Open Approach (ICD-10-PCS; 2017-11-02)
PROC: 5A1221Z Performance of Cardiac Output, Continuous (ICD-10-PCS; 2017-11-02)
PROC: 30233R1 Transfusion of Nonautologous Platelets into Peripheral Vein, Percutaneous Approach (ICD-10-PCS; 2017-11-02)
DX: I50.43 Acute on chronic combined systolic (congestive) and diastolic (congestive) heart failure (principal); J96.01 Acute respiratory failure with hypoxia; G93.41 Metabolic encephalopathy; I47.2 Ventricular tachycardia; J96.02 Acute respiratory failure with hypercapnia; E87.2 Acidosis; J90 Pleural effusion, not elsewhere classified; D68.9 Coagulation defect, unspecified; I24.8 Other forms of acute ischemic heart disease; I45.2 Bifascicular block; E87.1 Hypo-osmolality and hyponatremia; G81.94 Hemiplegia, unspecified affecting left nondominant side; I35.0 Nonrheumatic aortic (valve) stenosis; E66.01 Morbid (severe) obesity due to excess calories; Z68.37 Body mass index [BMI] 37.0-37.9, adult; E86.0 Dehydration; M25.462 Effusion, left knee; E83.42 Hypomagnesemia; E87.6 Hypokalemia; R01.1 Cardiac murmur, unspecified
CPT/HCPCS: 32554; 36415; 36416; 36430; 70450; 70496; 71010; 71020; 74177; 80048; 80053; 80061; 80069; 81003; 81015; 82553; 82805; 82945; 83036; 83605; 83615; 83690; 83735; 83880; 83986; 84157; 84484; 84550; 85025; 85049; 85060; 85384; 85610; 85730; 86850; 86870; 86880; 86900; 86901; 86905; 86970; 86978; 87040; 87070; 87116; 87205; 87206; 88112; 88305; 88307; 88341; 88342; 88360; 89051; 93005; 93010; 93306; 93454; 93798; 94002; 94150; 94640; 94660; 96361; 96365; 96367; A4216; C1769; G8978-GP-CM; G8979-GP-CK; G8979-GP-CL; G8987-GO-CL; G8988-GO-CJ; J0360; J0456; J0696; J1642; J1644; J1650; J1815; J1940; J2001; J2250; J2270; J2597; J2720; J2920; J3010; J3370; J3480; J7050; J7506; J7620; P9016; P9035; P9045; S0017; S0028